=== PATIENT | female | born 1970 | race Two or more races ===

== ENCOUNTER 2019-12-20 13:31 | Emergency (ER) | payer MEDICARE, MEDICAID ==
--- NOTE | 2019-12-20 14:28 | EDM.PDOC ---
ED HPI GENERAL MEDICAL PROBLEM - General Chief Complaint: General Stated Complaint: left arm, shoulder and knee injury Time Seen by Provider: 12/20/19 13:45 Source of Information: Reports: Patient History Limitations: Reports: No Limitations - History of Present Illness INITIAL COMMENTS - FREE TEXT/NARRATIVE: This patient is an obese 49 year old female that presents to the ER. Patient arrived via EMS. Patient is sitting up in stretcher. Patient reports she was at her mothers home and was at her car door, when she slipped on ice and fell on her left side. Patient reports pain to the left shoulder, left upper arm, left hip, middle back, left knee, right knee. Patient reports she noticed right knee bruising "that wasnt there this morning". The patient states she crawled her way back into the house to call an ambulance. Patient denies hitting her head, denies currently taking Xarelto that last few days due to an upcoming surgery to her knee on Saturday. No Trauma Code called, due to not meeting criteria. Patient denies loc, syncope, n, v, vision changes, neck pain. She is alert and oriented. Does not appear to be in distress. Has made a few phone calls from cell phone while in ER within minutes of my exam and arrival. 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) Location: Reports: Back, Upper Extremity, Left, Lower Extremity, Left, Lower Extremity, Right Front/Back Body Image: 1 - pain, tenderness 2 - pain, tenderness 3 - pain, tenderness, ecchymosis 4 - pain, tenderness 5 - pain, tenderness Quality: Reports: Ache Severity: Mild Improves with: Reports: Immobilization Worsens with: Reports: Movement Associated Symptoms: Denies: Confusion, Chest Pain, Cough, cough w sputum, Diaphoresis, Fever/Chills, Headaches, Loss of Appetite, Malaise, Nausea/Vomiting , Rash, Seizure, Shortness of Breath, Syncope, Weakness Left Knee Pain Score (Numeric/FACES): 9 - Related Data Allergies Allergy/AdvReac Type Severity Reaction Status Date / Time latex Allergy Rash Verified 12/20/19 13:39 tramadol Allergy Other Verified 12/20/19 13:39 bee stings Allergy Anaphylactic Uncoded 12/20/19 13:39 Shock coconut Allergy Anaphylactic Uncoded 12/20/19 13:39 Shock wool Allergy Itching Uncoded 12/20/19 13:39 Home Meds: Home Meds ARIPiprazole [Abilify] 20 mg PO DAILY 12/20/19 [History] Acetaminophen/Butalbital/Caff [Fioricet 325-50-40 MG] 1 each PO ASDIRECTED PRN 12/20/19 [History] Cholecalciferol (Vitamin D3) [Vitamin D] 50,000 unit PO WEEKLY 12/20/19 [History ] Efavirenz/Lamivu/Tenofov Disop [Symfi 600-300-300 mg Tablet] 1 each PO DAILY [History] Emtricitabine/Tenofov Alafenam [Descovy 200-25 mg Tablet] 1 each PO DAILY [History] Furosemide [Lasix] 20 mg PO BID 12/20/19 [History] HYDROmorphone HCl [Dilaudid] 8 mg PO ASDIRECTED PRN 12/20/19 [History] LORazepam 1 mg PO TID PRN 12/20/19 [History] Levocetirizine Dihydrochloride [Xyzal] 5 mg PO DAILY PRN 12/20/19 [History] Loperamide [Imodium] 2 mg PO ASDIRECTED PRN 12/20/19 [History] Montelukast Sodium [Singulair] 10 mg PO DAILY 12/20/19 [History] Morphine Sulfate [Morphine Sulfate ER] 60 mg PO TID 12/20/19 [History] Ondansetron [Zofran Odt] 8 mg PO Q6H PRN 12/20/19 [History] Oxybutynin 5 mg PO DAILY PRN 12/20/19 [History] Oxybutynin Chloride [Oxybutynin Chloride ER] 15 mg PO BID 12/20/19 [History] Pantoprazole Sodium 40 mg PO DAILY 12/20/19 [History] Pregabalin [Lyrica] 200 mg PO TID 12/20/19 [History] Rivaroxaban [Xarelto] 20 mg PO DAILY 12/20/19 [History] Spironolact/Hydrochlorothiazid [Spironolactone-HCTZ 25-25] 1 tab PO DAILY [History] busPIRone [Buspar] 10 mg PO BID 12/20/19 [History] calcitrioL [Calcitriol] 2 tab PO DAILY 12/20/19 [History] medroxyPROGESTERone Acetate [Medroxyprogesterone Acetate] 10 mg PO DAILY [History] tiZANidine HCl [Tizanidine HCl] 4 mg PO TID 12/20/19 [History] ED ROS GENERAL - Review of Systems Review Of Systems: See Below Constitutional: Reports: No Symptoms HEENT: Reports: No Symptoms. Denies: Vertigo, Vision Change Respiratory: Reports: No Symptoms. Denies: Shortness of Breath, Pleuritic Chest Pain, Cough Cardiovascular: Reports: No Symptoms. Denies: Chest Pain, Lightheadedness, Syncope Endocrine: Reports: No Symptoms GI/Abdominal: Reports: No Symptoms. Denies: Nausea, Vomiting : Reports: No Symptoms Musculoskeletal: Reports: Shoulder Pain (left), Arm Pain (left upper), Back Pain (middle), Joint Pain (bialteral knees, left hip.), Muscle Pain (generalized ) Skin: Reports: Bruising (right knee) Neurological: Reports: No Symptoms. Denies: Confusion, Dizziness, Headache, Numbness, Seizure, Syncope, Tingling, Trouble Speaking, Weakness, Change in Speech Psychiatric: Reports: No Symptoms Hematologic/Lymphatic: Reports: No Symptoms Immunologic: Reports: No Symptoms ED EXAM, GENERAL - Physical Exam Exam: See Below Exam Limited By: Other (Exam is limited due to patient obesity. [place] identification is difficult.) General Appearance: Alert, WD/WN, No Apparent Distress Eye Exam: Bilateral Eye: EOMI, Normal Inspection, PERRL Ears: Normal External Exam, Normal Canal, Hearing Grossly Normal, Normal TMs Ear Exam: Bilateral Ear: Auricle Normal, Canal Normal, TM normal Nose: Normal Inspection, Normal Mucosa, No Blood Throat/Mouth: Normal Inspection, Normal Lips, Normal Teeth, Normal Gums, Normal Oropharynx, Normal Voice, No Airway Compromise Head: Atraumatic, Normocephalic Neck: Normal Inspection, Supple, Non-Tender, Full Range of Motion Respiratory/Chest: No Respiratory Distress, Lungs Clear, Normal Breath Sounds, No Accessory Muscle Use, Chest Non-Tender Cardiovascular: Normal Peripheral Pulses, Regular Rate, Rhythm, No Edema, No Gallop, No JVD, No Murmur, No Rub Peripheral Pulses: 2+: Radial (L), Radial (R), Posterior Tibial (L), Posterior Tibial (R) GI/Abdominal: Non-Tender, Other (obese) Back Exam: Normal Inspection, Full Range of Motion, Paraspinal Tenderness ( thoracic), Vertebral Tenderness (thoracic). No: CVA Tenderness (L), CVA Tenderness (R), Decreased Range of Motion, Muscle Spasm Extremities: Other (Pain, tenderness left shoulder, left upper arm, left hip, left knee, right knee. Eccyhmosis right knee. ) Neurological: Alert, Oriented, Normal Cognition Psychiatric: Normal Affect, Normal Mood Skin Exam: Warm, Dry, Intact, No Rash, Ecchymosis (right knee mild) Course - Vital Signs Last Recorded V/S: Last Vital Signs Temp 96.9 F 12/20/19 13:32 Pulse 66 12/20/19 13:32 Resp 16 12/20/19 13:32 BP 109/51 L 12/20/19 13:32 Pulse Ox 100 12/20/19 13:32 - Orders/Labs/Meds Orders: Active Orders 24 hr Category Date Time Status Elbow Min 3V Lt [CR] Stat Exams 12/20/19 13:54 Taken Hip Min 2V or 3V w Pelvis Lt [CR] Stat Exams 12/20/19 13:54 Taken Knee 3V Lt [CR] Stat Exams 12/20/19 13:53 Taken Knee 3V Rt [CR] Stat Exams 12/20/19 13:53 Taken Shoulder Comp Lt [CR] Stat Exams 12/20/19 13:54 Taken Thoracic Spine 2V [CR] Stat Exams 12/20/19 13:54 Taken - Radiology Interpretation Free Text/Narrative:: Xrays: left shoulder, elbow, hip, knee: no fractures. Left knee patella dislocation. Thoracic: no fracture Right knee: No fracture - Re-Assessments/Exams Free Text/Narrative Re-Assessment/Exam: 12/20/19 14:34 Patient was able to transfer to xray table without difficulty. 12/20/19 15:00 Patent in xray was able to stand without difficulty, roll on table, move her left arm without difficulty. Back in ER room, she was coloring using left arm without issue. 12/20/19 16:09 Left knee patella dislocation. Another xray was obtained of the patella prior to reduction. I then reduced the patella. It popped and slid back into place without complications. Patient now reports pain of the knee has improved and it feels like it is in place. Norberto wrap used to the knee. Patient is to obese for knee immobilizer. Departure - Departure Time of Disposition: 16:19 Disposition: Home, Self-Care 01 Condition: Fair Clinical Impression: Multiple contusions Fall Qualifiers: Encounter type: initial encounter Qualified Code(s): W19.XXXA - Unspecified fall, initial encounter Sprain of left shoulder Qualifiers: Encounter type: initial encounter Shoulder sprain type: unspecified sprain Qualified Code(s): S43.402A - Unspecified sprain of left shoulder joint, initial encounter Patellar dislocation Qualifiers: Encounter type: initial encounter Laterality: left Qualified Code(s): S83.005A - Unspecified dislocation of left patella, initial encounter - Discharge Information *PRESCRIPTION DRUG MONITORING PROGRAM REVIEWED*: Not Applicable *COPY OF PRESCRIPTION DRUG MONITORING REPORT IN PATIENT BELKIS: Not Applicable Instructions: Patellar Dislocation, Contusion, [id number] Forms: ED Department Discharge Additional Instructions: Followup with your primary care provider Followup with your orthopedic as needed Rest Ice Elevate Arm sling as needed Norberto wrap to the knee If knee cap dislocates again, present to ER to put back in. Walker as needed Sepsis Event Note - Evaluation Sepsis Screening Result: No Definite Risk - Focused Exam Vital Signs: Vital Signs Temp Pulse Resp BP Pulse Ox 12/20/19 13:32 96.9 F 66 16 109/51 L 100 Date Exam was Performed: 12/20/19 Time Exam was Performed: 16:19 - My Orders Last 24 Hours: My Active Orders 12/20/19 13:53 Knee 3V Lt [CR] Stat Knee 3V Rt [CR] Stat 12/20/19 13:54 Elbow Min 3V Lt [CR] Stat Hip Min 2V or 3V w Pelvis Lt [CR] Stat Shoulder Comp Lt [CR] Stat Thoracic Spine 2V [CR] Stat - Assessment/Plan Last 24 Hours: My Active Orders 12/20/19 13:53 Knee 3V Lt [CR] Stat Knee 3V Rt [CR] Stat 12/20/19 13:54 Elbow Min 3V Lt [CR] Stat Hip Min 2V or 3V w Pelvis Lt [CR] Stat Shoulder Comp Lt [CR] Stat Thoracic Spine 2V [CR] Stat Plan: PLEASE SEE RN NOTE FOR PFSH
== END 2019-12-20 16:45 | disposition home or self-care (01) ==
LOC: CC.ED 13:31
DX: S83.005A Unspecified dislocation of left patella, initial encounter (principal); S43.402A Unspecified sprain of left shoulder joint, initial encounter; S80.01XA Contusion of right knee, initial encounter; M79.622 Pain in left upper arm; M54.6 Pain in thoracic spine; M25.552 Pain in left hip; E66.9 Obesity, unspecified; Z68.43 Body mass index [BMI] 50.0-59.9, adult; Z91.030 Bee allergy status; Z91.040 Latex allergy status; Z88.5 Allergy status to narcotic agent; Z91.018 Allergy to other foods; Z91.09 Other allergy status, other than to drugs and biological substances; Z79.01 Long term (current) use of anticoagulants; W00.0XXA Fall on same level due to ice and snow, initial encounter; Y92.89 Other specified places as the place of occurrence of the external cause; Y93.89 Activity, other specified
CPT/HCPCS: 27560; 72070; 73030-LT; 73080-LT; 73562-LT; 73562-RT; 99283-25; 99284

== ENCOUNTER 2021-07-30 18:46 | Emergency (ER) | payer MEDICARE, MEDICAID ==
[2021-07-30 19:16] LABS: CHLORIDE,CL 101 mEq/L (98-106); SODIUM,NA 136 mEq/L (136-145)
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
== END 2021-07-30 22:05 | disposition home or self-care (01) ==
LOC: CC.ED 18:46
DX: S80.11XA Contusion of right lower leg, initial encounter (principal); S80.12XA Contusion of left lower leg, initial encounter; R51.9 Headache, unspecified; M25.552 Pain in left hip; I11.0 Hypertensive heart disease with heart failure; I50.9 Heart failure, unspecified; K21.9 Gastro-esophageal reflux disease without esophagitis; M19.90 Unspecified osteoarthritis, unspecified site; E66.9 Obesity, unspecified; Z68.45 Body mass index [BMI] 70 or greater, adult; Z86.711 Personal history of pulmonary embolism; Z79.01 Long term (current) use of anticoagulants; Z91.040 Latex allergy status; Z88.5 Allergy status to narcotic agent; Z91.030 Bee allergy status; Z91.018 Allergy to other foods; Z91.048 Other nonmedicinal substance allergy status; Z79.899 Other long term (current) drug therapy; W18.30XA Fall on same level, unspecified, initial encounter; Y92.009 Unspecified place in unspecified non-institutional (private) residence as the place of occurrence of the external cause
CPT/HCPCS: 36415; 70450; 72125; 72192; 80053; 84484; 85025; 86140; 93005; 93010; 99284; 99284-25

== ENCOUNTER 2021-08-01 14:17 | Emergency (ER) | payer MEDICARE, MEDICAID ==
[2021-08-01] MEDS ORDERED: Sodium Chloride 0.9% 1,000 ML IV SCH (15:30)
--- NOTE | 2021-08-01 16:47 | EDM.PDOC ---
ED HPI GENERAL MEDICAL PROBLEM - General Chief Complaint: General Stated Complaint: diarrhea Time Seen by Provider: 08/01/21 14:40 Source of Information: Reports: Patient History Limitations: Reports: No Limitations - History of Present Illness INITIAL COMMENTS - FREE TEXT/NARRATIVE: Jessica is a 51 year old female who presents to ER with complaints of weakness and diarrhea. Patient states she fell around 0300 this am and hit her head on the frame of her bed. States she was attempting to roll over so she could get up from the bed and fell off. EMS was called and assisted up from the floor and she returned back to bed. She admits she has had to get up frequently over the last 2 days due to diarrhea. Feels weak as a result. Does have history of many falls even prior to this. Was just seen on the weekend by this provider for a fall with head trauma. Had hip pain at that time. All scan negative. Now today she is noting bruising to her right thigh and left sandoval from this fall but admits has been able to bear weight and still ambulate with her walker. Notes incontinence of stool at times due to not getting to the bathroom in time. No abdominal pain or fever. States not absorbing her meds well as they "are running right through me". Is on anticoagulation due to history of blood clots. Onset: Gradual Duration: Day(s):, Waxing/Waning Location: Reports: Generalized Associated Symptoms: Reports: Headaches, Malaise, Weakness. Denies: Confusion, Chest Pain, Cough, Fever/Chills, Loss of Appetite, Nausea/Vomiting, Shortness of Breath Treatments ELECTRICAL TEST ENGINEER: Reports: Other Medication(s) Other Treatments ELECTRICAL TEST ENGINEER: immodium Bilateral Leg Pain Score (Numeric/FACES): 7 - Related Data Allergies Allergy/AdvReac Type Severity Reaction Status Date / Time latex Allergy Rash Verified 08/01/21 14:21 tramadol Allergy Other Verified 08/01/21 14:21 bee stings Allergy Anaphylactic Uncoded 08/01/21 14:21 Shock coconut Allergy Anaphylactic Uncoded 08/01/21 14:21 Shock wool Allergy Itching Uncoded 08/01/21 14:21 Home Meds: Home Meds ARIPiprazole [Abilify] 20 mg PO DAILY 12/20/19 [History] Acetaminophen/Butalbital/Caff [Fioricet 325-50-40 MG] 1 each PO ASDIRECTED PRN 12/20/19 [History] Cholecalciferol (Vitamin D3) [Vitamin D] 50,000 unit PO WEEKLY 12/20/19 [History] Efavirenz/Lamivu/Tenofov Disop [Symfi 600-300-300 mg Tablet] 1 each PO DAILY 12/20/19 [History] Emtricitabine/Tenofov Alafenam [Descovy 200-25 mg Tablet] 1 each PO DAILY 12/20/19 [History] Furosemide [Lasix] 20 mg PO BID 12/20/19 [History] LORazepam 1 mg PO TID PRN 12/20/19 [History] Levocetirizine Dihydrochloride [Xyzal] 5 mg PO DAILY PRN 12/20/19 [History] Loperamide [Imodium] 2 mg PO ASDIRECTED PRN 12/20/19 [History] Montelukast Sodium [Singulair] 10 mg PO DAILY 12/20/19 [History] Ondansetron [Zofran Odt] 8 mg PO Q6H PRN 12/20/19 [History] Oxybutynin 5 mg PO DAILY PRN 12/20/19 [History] Oxybutynin Chloride [Oxybutynin Chloride ER] 15 mg PO BID 12/20/19 [History] Pantoprazole Sodium 40 mg PO DAILY 12/20/19 [History] Pregabalin [Lyrica] 200 mg PO TID 12/20/19 [History] Rivaroxaban [Xarelto] 20 mg PO DAILY 12/20/19 [History] Spironolact/Hydrochlorothiazid [Spironolactone-HCTZ 25-25] 1 tab PO DAILY 12/20/19 [History] busPIRone [Buspar] 10 mg PO BID 12/20/19 [History] calcitrioL [Calcitriol] 2 tab PO DAILY 12/20/19 [History] medroxyPROGESTERone Acetate [Medroxyprogesterone Acetate] 10 mg PO DAILY 12/20/19 [History] Past Medical History HEENT History: Reports: Other (See Below) Other HEENT History: legally blind Cardiovascular History: Reports: Heart Failure, Hypertension, SOB on Exertion Respiratory History: Reports: PE, SOB Gastrointestinal History: Reports: Chronic Diarrhea, GERD Genitourinary History: Reports: Urinary Incontinence, Other (See Below) Other Genitourinary History: stage 3 kidney failure Other CLINICAL PSYCHOLOGIST LICENSED History: tubal ligation Musculoskeletal History: Reports: Back Pain, Chronic, Fracture, Osteoarthritis Neurological History: Reports: Migraines Psychiatric History: Reports: Anxiety, Bipolar, Depression, Panic Attack Endocrine/Metabolic History: Reports: Hyperthyroidism, Vitamin D Deficiency Hematologic History: Reports: Anticoagulation Therapy Other Hematologic History: on xarelto for history of PE Immunologic History: Reports: HIV - Past Surgical History Respiratory Surgical History: Reports: None GI Surgical History: Reports: Bariatric Procedure, Cholecystectomy, Other (See Below) Other GI Surgeries/Procedures: panniculectomy 2018 (19 lbs skin removed) Female Surgical History: Reports: Tubal Ligation Musculoskeletal Surgical History: Reports: Arthroscopic Knee, Knee Replacement, Other (See Below) Other Musculoskeletal Surgeries/Procedures:: left knee replacement X3; fracture below left knee, ruptured quadricep tendon repair, ruptured thigh. muscle, right knee surgery Social & Family History - Tobacco Use Tobacco Use Status *Q: Unknown Ever Used Tobacco ED ROS GENERAL - Review of Systems Review Of Systems: See Below Constitutional: Reports: Malaise, Weakness, Fatigue. Denies: Fever, Chills, Decreased Appetite HEENT: Denies: Ear Pain, Rhinitis, Sinus Problem, Throat Pain, Vertigo, Vision Change Respiratory: Denies: Shortness of Breath, Cough Cardiovascular: Denies: Chest Pain, Lightheadedness Endocrine: Reports: Fatigue GI/Abdominal: Reports: Diarrhea, Nausea. Denies: Abdominal Pain, Decreased Appetite, Vomiting : Reports: Incontinence Musculoskeletal: Reports: Leg Pain, Joint Pain Skin: Reports: Bruising Neurological: Reports: Headache, Weakness. Denies: Confusion, Dizziness Psychiatric: Reports: No Symptoms ED EXAM, GENERAL - Physical Exam Exam: See Below Exam Limited By: No Limitations General Appearance: Alert, WD/WN, No Apparent Distress Eye Exam: Bilateral Eye: EOMI, PERRL Ears: Normal External Exam, Normal TMs Nose: Normal Inspection, Normal Mucosa, No Blood Throat/Mouth: Normal Inspection, Normal Oropharynx Head: Normocephalic Neck: Normal Inspection, Supple, Non-Tender Respiratory/Chest: No Respiratory Distress, Lungs Clear, Normal Breath Sounds Cardiovascular: Regular Rate, Rhythm GI/Abdominal: Normal Bowel Sounds, Soft, Non-Tender Extremities: Normal Range of Motion Skin Exam: Warm, Dry, Ecchymosis (patient has bruising to arms, legs scattered throughout, some old and some new) Course - Vital Signs Last Recorded V/S: Last Vital Signs Temp 97 F 08/01/21 15:07 Pulse 72 08/01/21 15:07 Resp 18 08/01/21 15:07 BP 119/67 08/01/21 15:07 Pulse Ox 99 08/01/21 15:07 - Orders/Labs/Meds Orders: Active Orders 24 hr Category Date Time Status Vital Signs [RC] PRN Care 08/01/21 15:00 Active Head wo Cont [CT] Stat Exams 08/01/21 14:32 Taken Sodium Chloride 0.9% [Normal Saline] 1,000 ml Med 08/01/21 15:30 Active IV ASDIRECTED Medication Orders Sodium Chloride (Normal Saline) 1,000 mls @ 999 mls/hr IV ASDIRECTED MINDI Last Admin: 08/01/21 15:23 Dose: 999 mls/hr Documented by: SOFIE Labs: Laboratory Tests 08/01/21 08/01/21 Range/Units 14:41 14:41 WBC 4.6 (4.0-11.0) 10^3/uL RBC 4.37 (4.00-5.50) x10^6/uL Hgb 12.3 (12.0-16.0) g/dL Hct 37.4 (37.0-47.0) % MCV 85.6 (83.0-97.0) fL MCH 28.1 (27.0-32.0) pg MCHC 32.9 (32.0-36.0) g/dL RDW Coeff of Nando 16.0 H (11.0-15.0) % Plt Count 200 (150-400) 10^3/uL Immature Gran % (Auto) 0.4 (0.0-4.9) % Neut % (Auto) 63.6 (41-71) % Lymph % (Auto) 24.7 (24-44) % Placer % (Auto) 9.8 (0-10) % Eos % (Auto) 1.3 (0-6) % Baso % (Auto) 0.2 (0-1) % Neut # (Auto) 2.93 (1.80-8.00) x10^3/uL Lymph # (Auto) 1.14 (0.60-5.00) 10^3/uL Placer # (Auto) 0.45 (0.00-1.50) 10^3/uL Eos # (Auto) 0.06 (0.00-1.50) 10^3/uL Baso # (Auto) 0.01 (0.00-0.50) 10^3/uL Immature Gran # (Auto) 0.02 (0.00-0.49) 10^3/uL Sodium 133 L (136-145) mEq/L Potassium 4.0 (3.5-5.0) mEq/L Chloride 106 (98-106) mEq/L Carbon Dioxide 22 (21-32) mmol/L BUN 36 H (7-18) mg/dL Creatinine 1.7 H (0.6-1.0) mg/dL Est Cr Clr Drug Dosing 38.93 mL/min Estimated GFR (MDRD) 32 L (>=60) mL/min Glucose 99 (75-99) mg/dL Calcium 8.1 L (8.4-10.1) mg/dL Total Bilirubin 0.2 (0.0-1.0) mg/dL AST 27 (15-37) U/L ALT 28 (12-78) U/L Alkaline Phosphatase 134 H (46-116) U/L C-Reactive Protein 7.4 H (0.2-0.8) mg/dL Total Protein 6.7 (6.4-8.2) g/dL Albumin 3.0 L (3.4-5.0) g/dL Meds: Medications Generic Name Dose Route Start Last Admin Trade Name Freq PRN Reason Stop Dose Admin Sodium Chloride 1,000 mls @ 999 mls/hr 08/01/21 15:30 08/01/21 15:23 Normal Saline IV 999 mls/hr ASDIRECTED MINDI Administration - Re-Assessments/Exams Free Text/Narrative Re-Assessment/Exam: 08/01/21 labs show mild elevation of BUN and creatinine since Saturday. IV fluids due to dehydration, elevation of BUN and creatinine. Awaiting CT scan of head due to fall on anticoagulation. 08/01/21 1540- CT scan of head is negative. Will monitor and complete IV fluids. Patient resting up in wheelchair, watching TV 1715- No further diarrhea since arrival here. Reassured of labs, CT scan. If persists, may need to collect stool studies in the next 2-3 days. Departure - Departure Time of Disposition: 17:21 Disposition: Home, Self-Care 01 Condition: Good Clinical Impression: Diarrhea, Headache Fall Qualifiers: Encounter type: initial encounter Qualified Code(s): W19.XXXA - Unspecified fall, initial encounter - Discharge Information *PRESCRIPTION DRUG MONITORING PROGRAM REVIEWED*: No *COPY OF PRESCRIPTION DRUG MONITORING REPORT IN PATIENT BELKIS: No Instructions: Diarrhea, Adult, [id number] Referrals: Venessa Srivastava TORCH OPERATOR [Primary Care Provider] - Forms: ED Department Discharge Additional Instructions: 1. Push fluids 2. BRAT diet~ bananas, rice, applesauce and toast 3. Immodium as needed 4. If diarrhea continues, may need to have stool specimens collected 5. Slow cautious movements to avoid falls, use walker 6. Follow up for any persisting concerns. Sepsis Event Note (ED) - Focused Exam Vital Signs: Vital Signs Temp Pulse Resp BP Pulse Ox 08/01/21 15:07 97 F 72 18 119/67 99 08/01/21 15:00 74 122/60 08/01/21 14:52 97.5 F 72 18 117/62 99 08/01/21 14:43 97 F 71 18 118/69 99 08/01/21 14:37 98 F 71 18 120/69 99 08/01/21 14:22 98.2 F 76 18 118/68 96 - My Orders Last 24 Hours: My Active Orders 08/01/21 14:32 Head wo Cont [CT] Stat 08/01/21 15:00 Vital Signs [RC] PRN 08/01/21 15:30 Sodium Chloride 0.9% [Normal Saline] 1,000 ml IV ASDIRECTED - Assessment/Plan Last 24 Hours: My Active Orders 08/01/21 14:32 Head wo Cont [CT] Stat 08/01/21 15:00 Vital Signs [RC] PRN 08/01/21 15:30 Sodium Chloride 0.9% [Normal Saline] 1,000 ml IV ASDIRECTED
== END 2021-08-01 17:50 | disposition home or self-care (01) ==
LOC: CC.ED 14:17
DX: S80.11XA Contusion of right lower leg, initial encounter (principal); S80.12XA Contusion of left lower leg, initial encounter; S40.022A Contusion of left upper arm, initial encounter; S40.021A Contusion of right upper arm, initial encounter; R51.9 Headache, unspecified; R19.7 Diarrhea, unspecified; I11.0 Hypertensive heart disease with heart failure; I50.9 Heart failure, unspecified; K21.9 Gastro-esophageal reflux disease without esophagitis; M19.90 Unspecified osteoarthritis, unspecified site; Z86.711 Personal history of pulmonary embolism; Z79.01 Long term (current) use of anticoagulants; Z91.040 Latex allergy status; Z88.5 Allergy status to narcotic agent; Z91.030 Bee allergy status; Z91.018 Allergy to other foods; Z91.048 Other nonmedicinal substance allergy status; Z79.899 Other long term (current) drug therapy; W06.XXXA Fall from bed, initial encounter
CPT/HCPCS: 36415; 70450; 80053; 85025; 86140; 99285; J7030; 99284

== ENCOUNTER 2021-08-06 22:39 | Emergency (ER) | payer MEDICARE, MEDICAID ==
--- NOTE | 2021-08-06 23:00 | EDM.PDOC ---
ED HPI GENERAL MEDICAL PROBLEM - General Chief Complaint: Trauma Stated Complaint: FELL OUT OF BED- HEAD AND KNEE PAIN Time Seen by Provider: 08/06/21 22:35 Source of Information: Reports: Patient, EMS History Limitations: Reports: No Limitations - History of Present Illness INITIAL COMMENTS - FREE TEXT/NARRATIVE: Jessica is a 51 year old female who presents per EMS with complaints of fall and hitting head. Fell out of bed and hit her head on the dresser. No loss of consciousness. States did not feel herself she needed to come to the ER but due to hitting head and complaining of pain, the lady she lives with felt she needed to be evaluated. Does have difficulty getting up from the floor after falling. EMS reports was on the floor beside bed. This is the 4th call this week where they either brought her here or needed to assist her up from the floor. She states when she is up during the day, she does use her walker. Didn't realize tonight she was laying so close to the edge of her bed and when turned over, fell out. Mostly complaining of right knee pain. Feels she landed more with pressure on her knee. She has multiple bruises which appear relatively unc hanged since her eval on Saturday and no new bruising is noted. GCS 15. Onset: Today, Sudden Duration: Minutes: Location: Reports: Head, Lower Extremity, Right Quality: Reports: Ache Severity: Moderate Improves with: Reports: Rest Worsens with: Reports: Movement Associated Symptoms: Denies: Confusion, Chest Pain, Cough, Fever/Chills, Headaches, Loss of Appetite, Malaise, Nausea/Vomiting, Shortness of Breath, Syncope, Weakness Treatments WELDER PRODUCTION LINE GAS: Reports: See EMS Report Back of head and R knee Pain Score (Numeric/FACES): 8 - Related Data Allergies Allergy/AdvReac Type Severity Reaction Status Date / Time latex Allergy Rash Verified 08/06/21 23:09 tramadol Allergy Other Verified 08/06/21 23:09 bee stings Allergy Anaphylactic Uncoded 08/06/21 23:09 Shock coconut Allergy Anaphylactic Uncoded 08/06/21 23:09 Shock wool Allergy Itching Uncoded 08/06/21 23:09 Home Meds: Home Meds ARIPiprazole [Abilify] 20 mg PO DAILY 12/20/19 [History] Acetaminophen/Butalbital/Caff [Fioricet 325-50-40 MG] 1 each PO ASDIRECTED PRN 12/20/19 [History] Cholecalciferol (Vitamin D3) [Vitamin D] 50,000 unit PO WEEKLY 12/20/19 [History] Efavirenz/Lamivu/Tenofov Disop [Symfi 600-300-300 mg Tablet] 1 each PO DAILY 12/20/19 [History] Emtricitabine/Tenofov Alafenam [Descovy 200-25 mg Tablet] 1 each PO DAILY 12/20/19 [History] Furosemide [Lasix] 20 mg PO BID 12/20/19 [History] LORazepam 1 mg PO TID PRN 12/20/19 [History] Levocetirizine Dihydrochloride [Xyzal] 5 mg PO DAILY PRN 12/20/19 [History] Loperamide [Imodium] 2 mg PO ASDIRECTED PRN 12/20/19 [History] Montelukast Sodium [Singulair] 10 mg PO DAILY 12/20/19 [History] Ondansetron [Zofran Odt] 8 mg PO Q6H PRN 12/20/19 [History] Oxybutynin 5 mg PO DAILY PRN 12/20/19 [History] Oxybutynin Chloride [Oxybutynin Chloride ER] 15 mg PO BID 12/20/19 [History] Pantoprazole Sodium 40 mg PO DAILY 12/20/19 [History] Pregabalin [Lyrica] 200 mg PO TID 12/20/19 [History] Rivaroxaban [Xarelto] 20 mg PO DAILY 12/20/19 [History] Spironolact/Hydrochlorothiazid [Spironolactone-HCTZ 25-25] 1 tab PO DAILY 12/20/19 [History] busPIRone [Buspar] 10 mg PO BID 12/20/19 [History] calcitrioL [Calcitriol] 2 tab PO DAILY 12/20/19 [History] medroxyPROGESTERone Acetate [Medroxyprogesterone Acetate] 10 mg PO DAILY 12/20/19 [History] Past Medical History HEENT History: Reports: Other (See Below) Other HEENT History: legally blind Cardiovascular History: Reports: Heart Failure, Hypertension, SOB on Exertion Respiratory History: Reports: PE, SOB Gastrointestinal History: Reports: Chronic Diarrhea, GERD Genitourinary History: Reports: Urinary Incontinence, Other (See Below) Other Genitourinary History: stage 3 kidney failure Other RECONCILIATION ANALYST History: tubal ligation Musculoskeletal History: Reports: Back Pain, Chronic, Fracture, Osteoarthritis Neurological History: Reports: Migraines Psychiatric History: Reports: Anxiety, Bipolar, Depression, Panic Attack Endocrine/Metabolic History: Reports: Hyperthyroidism, Vitamin D Deficiency Hematologic History: Reports: Anticoagulation Therapy Other Hematologic History: on xarelto for history of PE Immunologic History: Reports: HIV - Infectious Disease History Infectious Disease History: Reports: HIV-Human Immunodeficiency Virus - Past Surgical History Respiratory Surgical History: Reports: None GI Surgical History: Reports: Bariatric Procedure, Cholecystectomy, Other (See Below) Other GI Surgeries/Procedures: panniculectomy 2018 (19 lbs skin removed) Female Surgical History: Reports: Tubal Ligation Musculoskeletal Surgical History: Reports: Arthroscopic Knee, Knee Replacement, Other (See Below) Other Musculoskeletal Surgeries/Procedures:: left knee replacement X3; fracture below left knee, ruptured quadricep tendon repair, ruptured thigh. muscle, right knee surgery Social & Family History - Family History Family Medical History: No Pertinent Family History - Tobacco Use Tobacco Use Status *Q: Unknown Ever Used Tobacco Review of Systems - Review of Systems Review Of Systems: See Below Constitutional: Denies: Chills, Diaphoresis, Fever, Weakness Eyes: Denies: Blindness, Blurred Vision, Decreased Acuity, Vision Change Ears: Denies: Dizziness, Pain, Bloody Discharge Nose: Denies: Congestion, Epistaxis Mouth/Throat: Denies: Painful Swallowing Respiratory: Denies: Shortness of Breath, Cough Cardiovascular: Denies: Chest Pain GI/Abdominal: Denies: Abdominal Pain, Nausea, Vomiting Genitourinary: Reports: No Symptoms Musculoskeletal: Reports: Joint Pain Skin: Reports: Bruising Neurological: Denies: Dizziness, Headache, Syncope, Weakness ED EXAM, GENERAL - Physical Exam Exam: See Below Free Text/Narrative:: Trauma code called due to hitting head and being on anticoagulants Primary survey: Alert, oriented x3. Converses easily. Patent airway Lung sounds clear Regular S1S2 Abdomen soft Pelvis nontender, no pelvic xray due to no pain, no trauma to area. Able to move about from CT scanner to cart per self. Back exposed, no trauma noted GCS 15 Exam Limited By: No Limitations General Appearance: Alert, WD/WN, No Apparent Distress Ears: Normal External Exam, Normal TMs Nose: Normal Inspection, Normal Mucosa, No Blood Throat/Mouth: Normal Inspection, Normal Oropharynx Head: Normocephalic Neck: Normal Inspection, Supple, Non-Tender Respiratory/Chest: No Respiratory Distress, Lungs Clear, Normal Breath Sounds Cardiovascular: Regular Rate, Rhythm GI/Abdominal: Normal Bowel Sounds, Soft, Non-Tender Extremities: Normal Inspection, Normal Range of Motion, Other (tender to right knee with palpation) Neurological: Alert, Oriented Skin Exam: Warm, Dry, Ecchymosis (multiple bruises noted throughout) Course - Vital Signs Last Recorded V/S: Last Vital Signs Temp 97.2 F 08/06/21 22:40 Pulse 71 08/06/21 22:50 Resp 21 H 08/06/21 22:50 BP 142/90 H 08/06/21 22:50 Pulse Ox 99 08/06/21 22:50 - Orders/Labs/Meds Orders: Active Orders 24 hr Category Date Time Status Head wo Cont [CT] Stat Exams 08/06/21 22:36 Taken Knee 3V Rt [CR] Stat Exams 08/06/21 22:57 Taken Meds: Medications Discontinued Medications Generic Name Dose Route Start Last Admin Trade Name Zhangq PRN Reason Stop Dose Admin Ketorolac Tromethamine 60 mg 08/06/21 23:32 08/06/21 23:37 Ketorolac 60 Mg/2 Ml Sdv IM 08/06/21 23:33 60 mg ONETIME ONE Administration - Re-Assessments/Exams Free Text/Narrative Re-Assessment/Exam: 08/06/21 23:31 Xrays of knee negative. CT scan negative. No labs done as mechanism of injury was fall out of bed without any other symptoms. Able to transfer to wheelchair per self. Conversing easily. GCS remains 15. 08/06/21 23:41 Long conversation held with patient and friend in regards to patient safety/falls and accommodations for her at home as has had several falls and visits for such. Patient admits she needs to move the stuff off her bed so she can settle more in to the bed as is a gomes size bed. Friend states room is unable to be rearranged to get dresser any farther away from the bed. Does have a grab bar but has not been using that. Does use walker when up. Discussed safety adaptations with possibly a hospital bed for her and home health for balance/strengthening. Departure - Departure Time of Disposition: 23:44 Disposition: Home, Self-Care 01 Condition: Good Clinical Impression: Trauma, Headache, Knee pain, right - Discharge Information *PRESCRIPTION DRUG MONITORING PROGRAM REVIEWED*: No *COPY OF PRESCRIPTION DRUG MONITORING REPORT IN PATIENT BELKIS: No Instructions: Chronic Knee Pain, Adult, [id number], General Headache Without Cause, [id number] Referrals: PCP,None [Primary Care Provider] - Forms: ED Department Discharge Additional Instructions: 1. Rest 2. Ensure bed is cleared and use grab bar as needed for better placement to avoid falling out of bed 3. Tylenol for headache 4. Contact [facility] for adaptation can be made to home 5. We will contact home health for strengthening/balance 6. Call with any questions or concerns. - My Orders Last 24 Hours: My Active Orders 08/06/21 22:36 Head wo Cont [CT] Stat 08/06/21 22:57 Knee 3V Rt [CR] Stat - Assessment/Plan Last 24 Hours: My Active Orders 08/06/21 22:36 Head wo Cont [CT] Stat 08/06/21 22:57 Knee 3V Rt [CR] Stat
[2021-08-06] MEDS ORDERED: Ketorolac 60 MG/2 ML SDV IM ONE (23:32)
== END 2021-08-06 23:55 | disposition home or self-care (01) ==
LOC: CC.ED 22:39
DX: R51.9 Headache, unspecified (principal); M25.561 Pain in right knee; I13.0 Hypertensive heart and chronic kidney disease with heart failure and stage 1 through stage 4 chronic kidney disease, or unspecified chronic kidney disease; N18.30 Chronic kidney disease, stage 3 unspecified; I50.9 Heart failure, unspecified; K21.9 Gastro-esophageal reflux disease without esophagitis; E03.9 Hypothyroidism, unspecified; Z91.040 Latex allergy status; Z91.030 Bee allergy status; Z88.5 Allergy status to narcotic agent; Z91.018 Allergy to other foods; Z91.048 Other nonmedicinal substance allergy status; Z79.899 Other long term (current) drug therapy; W06.XXXA Fall from bed, initial encounter
CPT/HCPCS: 70450; 73562-RT; 96372; 99283; 99284-25; J1885

== ENCOUNTER 2021-08-17 20:50 | Emergency (ER) | payer MEDICARE, MEDICAID ==
--- NOTE | 2021-08-17 21:45 | EDM.PDOC ---
ED HPI GENERAL MEDICAL PROBLEM - General Chief Complaint: General Stated Complaint: trauma-fall L) arm pain Time Seen by Provider: 08/17/21 20:55 Source of Information: Reports: Patient History Limitations: Reports: No Limitations - History of Present Illness INITIAL COMMENTS - FREE TEXT/NARRATIVE: States was cleaning something and she tripped over a bag of potatoes and fell to the floor. She was unable to get up and called the ambulance. She reports that she fell yesterday and hit the back of her head but was able to get up on her own and did not come in. She is on blood thinners due to multiple blood clots in the past. She denies any headache. Does complain of pain to the left humerus, left forearm and fingers. She denies any LOC. She does not think she hit her head tonight. GCS on admission was 15. She is alert and oriented. Ambulance reports that she has multiple falls and they get dispatched to help pick her up frequently. She does have multiple bruises to arms. Onset: Sudden Location: Reports: Head, Upper Extremity, Left Left Arm Pain Score (Numeric/FACES): 10 - Related Data Allergies Allergy/AdvReac Type Severity Reaction Status Date / Time latex Allergy Rash Verified 08/17/21 21:35 tramadol Allergy Other Verified 08/17/21 21:35 bee stings Allergy Anaphylactic Uncoded 08/17/21 21:35 Shock coconut Allergy Anaphylactic Uncoded 08/17/21 21:35 Shock wool Allergy Itching Uncoded 08/17/21 21:35 Home Meds: Home Meds Cholecalciferol (Vitamin D3) [Vitamin D] 50,000 unit PO WEEKLY 12/20/19 [History] Efavirenz/Lamivu/Tenofov Disop [Symfi 600-300-300 mg Tablet] 1 each PO DAILY 12/20/19 [History] Emtricitabine/Tenofov Alafenam [Descovy 200-25 mg Tablet] 1 each PO DAILY 12/20/19 [History] Levocetirizine Dihydrochloride [Xyzal] 5 mg PO DAILY PRN 12/20/19 [History] Loperamide [Imodium] 2 mg PO ASDIRECTED PRN 12/20/19 [History] Montelukast Sodium [Singulair] 10 mg PO DAILY 12/20/19 [History] Ondansetron [Zofran Odt] 8 mg PO Q6H PRN 12/20/19 [History] Oxybutynin 5 mg PO DAILY PRN 12/20/19 [History] Oxybutynin Chloride [Oxybutynin Chloride ER] 15 mg PO BID 12/20/19 [History] Pantoprazole Sodium 40 mg PO DAILY 12/20/19 [History] Pregabalin [Lyrica] 200 mg PO TID 12/20/19 [History] Rivaroxaban [Xarelto] 20 mg PO DAILY 12/20/19 [History] Spironolact/Hydrochlorothiazid [Spironolactone-HCTZ 25-25] 1 tab PO DAILY 12/20/19 [History] busPIRone [Buspar] 10 mg PO BID 12/20/19 [History] calcitrioL [Calcitriol] 2 tab PO DAILY 12/20/19 [History] medroxyPROGESTERone Acetate [Medroxyprogesterone Acetate] 10 mg PO DAILY 12/20/19 [History] Bumetanide [Bumex] 1 mg PO BID 08/17/21 [History] DULoxetine [Cymbalta] 90 mg PO QAM 08/17/21 [History] Levothyroxine 1 tab PO DAILY 08/17/21 [History] Lurasidone HCl [Latuda] 40 mg PO DAILY 08/17/21 [History] Past Medical History HEENT History: Reports: Other (See Below) Other HEENT History: legally blind Cardiovascular History: Reports: Heart Failure, Hypertension, SOB on Exertion Respiratory History: Reports: PE, SOB Gastrointestinal History: Reports: Chronic Diarrhea, GERD Genitourinary History: Reports: Urinary Incontinence, Other (See Below) Other Genitourinary History: stage 3 kidney failure 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 Musculoskeletal History: Reports: Back Pain, Chronic, Fracture, Osteoarthritis Neurological History: Reports: Migraines Psychiatric History: Reports: Anxiety, Bipolar, Depression, Panic Attack Endocrine/Metabolic History: Reports: Hyperthyroidism, Vitamin D Deficiency Hematologic History: Reports: Anticoagulation Therapy Other Hematologic History: on xarelto for history of PE Immunologic History: Reports: HIV - Infectious Disease History Infectious Disease History: Reports: HIV-Human Immunodeficiency Virus - Past Surgical History Respiratory Surgical History: Reports: None GI Surgical History: Reports: Bariatric Procedure, Cholecystectomy, Other (See Below) Other GI Surgeries/Procedures: panniculectomy 2018 (19 lbs skin removed) Female Surgical History: Reports: Tubal Ligation Musculoskeletal Surgical History: Reports: Arthroscopic Knee, Knee Replacement, Other (See Below) Other Musculoskeletal Surgeries/Procedures:: left knee replacement X3; fracture below left knee, ruptured quadricep tendon repair, ruptured thigh. muscle, right knee surgery Social & Family History - Family History Family Medical History: No Pertinent Family History - Tobacco Use Tobacco Use Status *Q: Former Tobacco User Years of Tobacco use: 5 Packs/Tins Daily: 1 Used Tobacco, but Quit: Yes Month/Year Tobacco Last Used: 1994 - Caffeine Use Caffeine Use: Reports: None - Recreational Drug Use Recreational Drug Use: Yes Drug Use in Last 12 Months: Yes Recreational Drug Type: Reports: Marijuana/Hashish ED ROS GENERAL - Review of Systems Review Of Systems: See Below Constitutional: Denies: Fever, Chills HEENT: Reports: Other (see HPI) Musculoskeletal: Reports: Arm Pain. Denies: Neck Pain, Shoulder Pain Skin: Reports: Bruising (to left arm.) ED EXAM, GENERAL - Physical Exam Exam: See Below Free Text/Narrative:: Pt brought in by [facility] airway is open breathing is normal circulation has no obvious bleeding. She has bruising to the left arm both upper arm and forearm that she states was not there prior to the fall. deformities- none exposed. No other injuries noted. GCS = 15. Exam Limited By: No Limitations General Appearance: Alert, WD/WN, Moderate Distress Ears: Normal External Exam, Normal TMs Head: Atraumatic, Normocephalic Neck: Normal Inspection, Supple, Non-Tender Respiratory/Chest: No Respiratory Distress, Lungs Clear, Normal Breath Sounds, Chest Non-Tender Cardiovascular: Regular Rate, Rhythm GI/Abdominal: Normal Bowel Sounds, Soft Extremities: Normal Capillary Refill Neurological: Alert, Oriented, Other (GCS = 15 on exam.) Skin Exam: Warm, Dry, Ecchymosis (to forearm and humerus areas. ) Course - Vital Signs Last Recorded V/S: Last Vital Signs Temp 96.3 F L 08/17/21 23:19 Pulse 75 08/17/21 23:34 Resp 16 08/17/21 23:34 BP 157/84 H 08/17/21 23:34 Pulse Ox 96 08/17/21 23:34 - Orders/Labs/Meds Orders: Active Orders 24 hr Category Date Time Status Forearm 2V Lt [CR] Stat Exams 08/17/21 21:23 Taken Head wo Cont [CT] Routine Exams 08/17/21 Taken Humerus Lt [CR] Stat Exams 08/17/21 21:23 Taken Shoulder Comp Lt [CR] Stat Exams 08/17/21 21:23 Taken - Re-Assessments/Exams Free Text/Narrative Re-Assessment/Exam: 08/17/21 -[address] reports and plain film xrays with pt and no fracture or dislocation noted. Pt will be discharged. Departure - Departure Time of Disposition: 23:34 Disposition: Home, Self-Care 01 Condition: Good Clinical Impression: Multiple contusions Fall Qualifiers: Encounter type: initial encounter Qualified Code(s): W19.XXXA - Unspecified fall, initial encounter - Discharge Information *PRESCRIPTION DRUG MONITORING PROGRAM REVIEWED*: Not Applicable *COPY OF PRESCRIPTION DRUG MONITORING REPORT IN PATIENT BELKIS: Not Applicable Referrals: Dylan Alvarado MD [Primary Care Provider] - Forms: ED Department Discharge Additional Instructions: ICE to areas that are bruised use as tolerated. recheck in clinic for any new concerns. Sepsis Event Note (ED) - Evaluation Sepsis Screening Result: No Definite Risk - Focused Exam Vital Signs: Vital Signs Temp Pulse Resp BP Pulse Ox 08/17/21 23:34 75 16 157/84 H 96 08/17/21 23:19 96.3 F L 78 16 146/97 H 98 08/17/21 23:02 96.3 F L 80 16 138/92 H 97 08/17/21 23:00 81 16 134/78 100 08/17/21 22:15 69 16 122/77 100 08/17/21 22:00 97 F 70 16 111/66 99 08/17/21 21:45 97.1 F 68 16 118/72 100 08/17/21 21:30 97.1 F 79 18 138/108 H 99 08/17/21 21:26 97.1 F 74 18 129/77 98 08/17/21 21:15 97.1 F 74 18 129/77 98 - Problem List & Annotations (1) Multiple contusions SNOMED Code(s): 934928232 Code(s): T07.XXXA - UNSPECIFIED MULTIPLE INJURIES, INITIAL ENCOUNTER Status: Acute Priority: High Current Visit: Yes (2) Fall SNOMED Code(s): 9133040, 960020262 Code(s): W19.XXXA - UNSPECIFIED FALL, INITIAL ENCOUNTER Status: Acute Priority: High Current Visit: Yes Qualifiers: Encounter type: initial encounter Qualified Code(s): W19.XXXA - Unspecified fall, initial encounter - Problem List Review Problem List Initiated/Reviewed/Updated: Yes - My Orders Last 24 Hours: My Active Orders 08/17/21 Head wo Cont [CT] Routine 08/17/21 21:23 Forearm 2V Lt [CR] Stat Humerus Lt [CR] Stat Shoulder Comp Lt [CR] Stat - Assessment/Plan Last 24 Hours: My Active Orders 08/17/21 Head wo Cont [CT] Routine 08/17/21 21:23 Forearm 2V Lt [CR] Stat Humerus Lt [CR] Stat Shoulder Comp Lt [CR] Stat
== END 2021-08-17 23:46 | disposition home or self-care (01) ==
LOC: CC.ED 20:50
DX: S50.12XA Contusion of left forearm, initial encounter (principal); S50.11XA Contusion of right forearm, initial encounter; S40.012A Contusion of left shoulder, initial encounter; S40.011A Contusion of right shoulder, initial encounter; S09.90XA Unspecified injury of head, initial encounter; I13.0 Hypertensive heart and chronic kidney disease with heart failure and stage 1 through stage 4 chronic kidney disease, or unspecified chronic kidney disease; N18.30 Chronic kidney disease, stage 3 unspecified; I50.9 Heart failure, unspecified; Z91.040 Latex allergy status; Z88.5 Allergy status to narcotic agent; Z91.030 Bee allergy status; Z91.018 Allergy to other foods; Z91.048 Other nonmedicinal substance allergy status; Z87.891 Personal history of nicotine dependence; W18.09XA Striking against other object with subsequent fall, initial encounter
CPT/HCPCS: 70450; 73030-LT; 73060-LT; 73090-LT; 99283; 99284-25

== ENCOUNTER 2021-08-20 19:00 | Emergency (ER) | payer MEDICARE, MEDICAID ==
[2021-08-20] MEDS ORDERED: Ketorolac 60 MG/2 ML SDV IM ONE (19:41)
[2021-08-20] MEDS ORDERED: Orphenadrine 60 MG/2 ML Inj IM ONE (19:41)
--- NOTE | 2021-08-20 19:43 | EDM.PDOC ---
ED HPI GENERAL MEDICAL PROBLEM - General Chief Complaint: General Stated Complaint: L) arm pain Time Seen by Provider: 08/20/21 19:20 Source of Information: Reports: Patient History Limitations: Reports: No Limitations - History of Present Illness INITIAL COMMENTS - FREE TEXT/NARRATIVE: Jessica is a 51 year old female who presents to ER for left arm pain. States fell 3 days ago and was seen in the ER that day. Had xrays of her forearm, humerus and shoulder that day, all negative. Due to her Xarelto, was told she had a hematoma to her left arm. Was advised to ice, elevate. Was advised to wrap her arm but she states she is unable to do that. Has not been using her arm much due to discomfort with in the area of the bruises on her arm. Took tylenol, ibuprofen and extra lyrica today to help with the discomfort. States "bessy came home and found me crying and felt I needed to have it checked again". Is able to move her arm, just admits it is sore when doing so so hasn't been using it. Does have a card for medical marijuana but is out and unable to afford to get any more until the . States her friend did buy her some to "get her buy and I tried to stretch that out for longer but ran out yesterday". Onset: Gradual Duration: Day(s):, Constant Location: Reports: Upper Extremity, Left Quality: Reports: Burning Severity: Severe Improves with: Reports: Rest Worsens with: Reports: Movement Context: Reports: Trauma Associated Symptoms: Denies: Confusion, Chest Pain, Cough, Fever/Chills, Loss of Appetite, Nausea/Vomiting, Shortness of Breath Treatments NEUROPHYSIOLOGIST: Reports: Acetaminophen, Cold Therapy, NSAIDS, Other Medication(s) Other Treatments NEUROPHYSIOLOGIST: Lyrica Left Arm Pain Score (Numeric/FACES): 10 - Related Data Allergies Allergy/AdvReac Type Severity Reaction Status Date / Time latex Allergy Rash Verified 08/20/21 19:19 tramadol Allergy Other Verified 08/20/21 19:19 bee stings Allergy Anaphylactic Uncoded 08/20/21 19:19 Shock coconut Allergy Anaphylactic Uncoded 08/20/21 19:19 Shock wool Allergy Itching Uncoded 08/20/21 19:19 Home Meds: Home Meds Cholecalciferol (Vitamin D3) [Vitamin D] 50,000 unit PO WEEKLY 12/20/19 [History] Efavirenz/Lamivu/Tenofov Disop [Symfi 600-300-300 mg Tablet] 1 each PO DAILY 12/20/19 [History] Emtricitabine/Tenofov Alafenam [Descovy 200-25 mg Tablet] 1 each PO DAILY 12/20/19 [History] Levocetirizine Dihydrochloride [Xyzal] 5 mg PO DAILY PRN 12/20/19 [History] Loperamide [Imodium] 2 mg PO ASDIRECTED PRN 12/20/19 [History] Montelukast Sodium [Singulair] 10 mg PO DAILY 12/20/19 [History] Ondansetron [Zofran Odt] 8 mg PO Q6H PRN 12/20/19 [History] Oxybutynin 5 mg PO DAILY PRN 12/20/19 [History] Oxybutynin Chloride [Oxybutynin Chloride ER] 15 mg PO BID 12/20/19 [History] Pantoprazole Sodium 40 mg PO DAILY 12/20/19 [History] Pregabalin [Lyrica] 200 mg PO TID 12/20/19 [History] Rivaroxaban [Xarelto] 20 mg PO DAILY 12/20/19 [History] Spironolact/Hydrochlorothiazid [Spironolactone-HCTZ 25-25] 1 tab PO DAILY 12/20 [History] busPIRone [Buspar] 10 mg PO BID 12/20/19 [History] calcitrioL [Calcitriol] 2 tab PO DAILY 12/20/19 [History] medroxyPROGESTERone Acetate [Medroxyprogesterone Acetate] 10 mg PO DAILY 12/02 08/21 [History] Bumetanide [Bumex] 1 mg PO BID 08/17/21 [History] DULoxetine [Cymbalta] 90 mg PO QAM 08/17/21 [History] Levothyroxine 1 tab PO DAILY 08/17/21 [History] Lurasidone HCl [Latuda] 40 mg PO DAILY 08/17/21 [History] Past Medical History HEENT History: Reports: Other (See Below) Other HEENT History: legally blind Cardiovascular History: Reports: Heart Failure, Hypertension, SOB on Exertion Respiratory History: Reports: PE, SOB Gastrointestinal History: Reports: Chronic Diarrhea, GERD Genitourinary History: Reports: Urinary Incontinence, Other (See Below) Other Genitourinary History: stage 3 kidney failure 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 Musculoskeletal History: Reports: Back Pain, Chronic, Fracture, Osteoarthritis Neurological History: Reports: Migraines Psychiatric History: Reports: Anxiety, Bipolar, Depression, Panic Attack Endocrine/Metabolic History: Reports: Hyperthyroidism, Vitamin D Deficiency Hematologic History: Reports: Anticoagulation Therapy Other Hematologic History: on xarelto for history of PE Immunologic History: Reports: HIV - Infectious Disease History Infectious Disease History: Reports: HIV-Human Immunodeficiency Virus - Past Surgical History Respiratory Surgical History: Reports: None GI Surgical History: Reports: Bariatric Procedure, Cholecystectomy, Other (See Below) Other GI Surgeries/Procedures: panniculectomy 2018 (19 lbs skin removed) Female Surgical History: Reports: Tubal Ligation Musculoskeletal Surgical History: Reports: Arthroscopic Knee, Knee Replacement, Other (See Below) Other Musculoskeletal Surgeries/Procedures:: left knee replacement X3; fracture below left knee, ruptured quadricep tendon repair, ruptured thigh. muscle, right knee surgery Social & Family History - Family History Family Medical History: No Pertinent Family History - Tobacco Use Tobacco Use Status *Q: Unknown Ever Used Tobacco - Caffeine Use Caffeine Use: Reports: None - Recreational Drug Use Recreational Drug Use: Yes Recreational Drug Type: Reports: Marijuana/Hashish ED ROS GENERAL - Review of Systems Review Of Systems: See Below Constitutional: Reports: Weakness. Denies: Fever, Chills, Malaise, Fatigue HEENT: Denies: Ear Pain, Rhinitis, Sinus Problem, Throat Pain Respiratory: Denies: Shortness of Breath, Cough Cardiovascular: Denies: Chest Pain, Edema, Lightheadedness Endocrine: Denies: Fatigue GI/Abdominal: Denies: Abdominal Pain, Nausea, Vomiting Musculoskeletal: Reports: Arm Pain Skin: Reports: Bruising Neurological: Reports: Weakness ED EXAM, GENERAL - Physical Exam Exam: See Below Exam Limited By: No Limitations General Appearance: Alert, WD/WN, Mild Distress Head: Normocephalic Neck: Normal Inspection, Supple, Non-Tender Respiratory/Chest: No Respiratory Distress, Lungs Clear, Normal Breath Sounds Cardiovascular: Regular Rate, Rhythm Extremities: Limited Range of Motion (is able to abduct and adduct her arm but complains of discomfort with doing so. Xrays reviewed from , all negative except contusions noted), Other (patient has hematoma to left upper arm. Arm circumference measured, left arm only 1 cm larger than right. Has good pulses radially. Palmar grasp equal when encouraged to move arm) Neurological: Alert, Oriented Skin Exam: Ecchymosis (has a large bruise to her left wrist and forearm, cries out when touching. did wrap arm with dorian bandage and put heat on and did not grimace or cry when talking with the nurse while I did this.) Course - Vital Signs Last Recorded V/S: Last Vital Signs Temp 98.8 F 08/20/21 19:24 Pulse 86 08/20/21 19:24 Resp 18 08/20/21 19:24 BP 111/66 08/20/21 19:24 Pulse Ox 98 08/20/21 19:24 - Orders/Labs/Meds Meds: Medications Discontinued Medications Generic Name Dose Route Start Last Admin Trade Name Zhangq PRN Reason Stop Dose Admin Ketorolac Tromethamine 60 mg 08/20/21 19:41 Ketorolac 60 Mg/2 Ml Sdv IM 08/20/21 19:42 ONETIME ONE Orphenadrine Citrate 60 mg 08/20/21 19:41 Orphenadrine 60 Mg/2 Ml Inj IM 08/20/21 19:42 ONETIME ONE - Re-Assessments/Exams Free Text/Narrative Re-Assessment/Exam: 08/20/21 20:01 Will switch patient to Tizanidine for muscle spasms. Injections given. Advised to hold off filling her flexeril and see how the Tizanidine does. Departure - Departure Time of Disposition: 20:03 Disposition: Home, Self-Care 01 Condition: Good Clinical Impression: Multiple contusions - Discharge Information *PRESCRIPTION DRUG MONITORING PROGRAM REVIEWED*: No *COPY OF PRESCRIPTION DRUG MONITORING REPORT IN PATIENT BELKIS: No Instructions: Contusion, Qtes-ty-Depi Referrals: Venessa Srivastava NP [Primary Care Provider] - Forms: ED Department Discharge Additional Instructions: 1. elevate arm as much as able 2. Compression wrap to arm 3. heat to affected areas 4. Tizanidine 4 mg every 8 hours as needed for muscle spasms. Hold flexeril 5. Follow up in clinic for any concerns. Sepsis Event Note (ED) - Focused Exam Vital Signs: Vital Signs Temp Pulse Resp BP Pulse Ox 08/20/21 19:24 98.8 F 86 18 111/66 98
== END 2021-08-20 20:12 | disposition home or self-care (01) ==
LOC: CC.ED 19:00
DX: S40.022A Contusion of left upper arm, initial encounter (principal); S50.12XA Contusion of left forearm, initial encounter; S60.212A Contusion of left wrist, initial encounter; I13.0 Hypertensive heart and chronic kidney disease with heart failure and stage 1 through stage 4 chronic kidney disease, or unspecified chronic kidney disease; N18.30 Chronic kidney disease, stage 3 unspecified; I50.9 Heart failure, unspecified; K21.9 Gastro-esophageal reflux disease without esophagitis; E05.90 Thyrotoxicosis, unspecified without thyrotoxic crisis or storm; Z91.040 Latex allergy status; Z91.030 Bee allergy status; Z91.018 Allergy to other foods; Z79.899 Other long term (current) drug therapy; Z79.01 Long term (current) use of anticoagulants; X58.XXXA Exposure to other specified factors, initial encounter
CPT/HCPCS: 96372; 99283; J1885; J2360

== ENCOUNTER 2021-09-03 18:14 | Emergency (ER) | payer MEDICARE, MEDICAID ==
[2021-09-03] MEDS ORDERED: Naloxone 2 MG/2 ML Syringe ONE ×2 (18:20→21:26)
[2021-09-03] MEDS ORDERED: Naloxone 2 MG/2 ML Syringe IVPUSH ONE ×3 (18:42→22:09)
[2021-09-03] MEDS ORDERED: Sodium Chloride 0.9% 1,000 ML ONE (19:05)
[2021-09-03] MEDS ORDERED: Albuterol/Ipratropium 3.0-0.5 MG/3 ML Neb Soln NEB ONE (19:08)
[2021-09-03] MEDS ORDERED: Furosemide 40 MG/4 ML VIAL IVPUSH ONE ×2 (19:32→19:48)
[2021-09-03 20:07] LABS: AMPHETAMINES,URINE NEGATIVE (NEGATIVE); BARBITURATES,URINE NEGATIVE (NEGATIVE); BENZODIAZEPINE,URINE POSITIVE (NEGATIVE); MDMA (ECSTASY), URINE NEGATIVE (NEGATIVE); METHADONE,URINE NEGATIVE (NEGATIVE); METHAMPHETAMINES,URINE NEGATIVE (NEGATIVE); OPIATES,URINE POSITIVE (NEGATIVE); OXYCODONE,URINE NEGATIVE (NEGATIVE); PHENCYCLIDINE,URINE NEGATIVE (NEGATIVE); TCA,URINE POSITIVE (NEGATIVE)
[2021-09-03] MEDS ORDERED: cefTRIAXone 2 GM Vial IVPUSH ONE (21:17)
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
== END 2021-09-03 23:22 ==
LOC: CC.ED 18:14
DX: T40.601A Poisoning by unspecified narcotics, accidental (unintentional), initial encounter (principal); I11.0 Hypertensive heart disease with heart failure; I50.9 Heart failure, unspecified; R06.03 Acute respiratory distress; N17.9 Acute kidney failure, unspecified; R74.8 Abnormal levels of other serum enzymes; R79.89 Other specified abnormal findings of blood chemistry; B20 Human immunodeficiency virus [HIV] disease; K21.9 Gastro-esophageal reflux disease without esophagitis; E05.90 Thyrotoxicosis, unspecified without thyrotoxic crisis or storm; Z86.711 Personal history of pulmonary embolism; Z79.01 Long term (current) use of anticoagulants; Z91.040 Latex allergy status; Z88.5 Allergy status to narcotic agent; Z91.030 Bee allergy status; Z91.018 Allergy to other foods; Z91.048 Other nonmedicinal substance allergy status; Z79.899 Other long term (current) drug therapy; Z20.822 Contact with and (suspected) exposure to COVID-19
CPT/HCPCS: 36415; 51702; 71045; 80053; 80305-QW; 81001; 82550; 83605; 83880; 84484; 85025; 85379; 85610; 86140; 87040; 87086; 87088; 87186; 93005; 94640; 96374; 96375; 96376; 99285-25; J0696; J1940; J2310; J7620-GY; U0002

== ENCOUNTER 2021-09-12 10:28 | Inpatient (IN) | payer MEDICARE, MEDICAID ==
[2021-09-12] MEDS ORDERED: tiZANidine 4 MG Tab PO PRN (14:56)
[2021-09-12] MEDS ORDERED: Morphine 15 MG Tab.ER PO PRN (14:56)
[2021-09-12] MEDS ORDERED: Triamcinolone Acetonide 0.1% Crm 15 GM Tube TOP PRN (14:56)
[2021-09-12] MEDS ORDERED: Nitroglycerin 0.4 MG Tab.SL SL PRN (14:56)
[2021-09-12] MEDS ORDERED: Nystatin Crm 30 GM Tube TOP PRN (14:56)
[2021-09-12] MEDS ORDERED: UBROGEPANT 100 MG PO PRN (14:56)
[2021-09-12] MEDS ORDERED: Morphine 15 MG Tab PO PRN (14:56)
[2021-09-12] MEDS ORDERED: Non-Formulary Medication 1 Each (Naloxone Hcl [Narcan] 4 MG Spray) NS PRN (14:56)
[2021-09-12] MEDS ORDERED: [UNRECOGNIZED DRUG - OTHER] SQ SCH (15:00)
[2021-09-12] MEDS ORDERED: ERENUMAB AOOE 140 MG/ML SQ SCH (15:00)
[2021-09-12] MEDS ORDERED: Cholecalciferol (Vitamin D3) 25 MCG Tab PO SCH (15:00)
[2021-09-12] MEDS ORDERED: AUTO INJCT SQ SCH (15:00)
[2021-09-12] MEDS ORDERED: Loratadine 10 MG Tab PO PRN (15:32)
[2021-09-12] MEDS ORDERED: Polyvinyl Alcohol 1.4% Ophth Soln 15 ML Bottle EYEBOTH PRN (15:54)
[2021-09-12] MEDS ORDERED: Naloxone 2 MG/2 ML Syringe IVPUSH PRN (16:21)
[2021-09-12] MEDS: busPIRone 5 MG Tab PO SCH (19:38)
[2021-09-12] MEDS: Pregabalin 100 MG Cap PO SCH ×2 (19:38)
[2021-09-12] MEDS: Montelukast 10 MG Tab PO SCH (19:39)
[2021-09-12] MEDS: LORazepam 0.5 MG Tab PO SCH (19:39)
--- NOTE | 2021-09-12 23:39 | HP ---
CHIEF COMPLAINT: Swing bed placement. HISTORY: Mrs. Parks is a 51-year-old female who was recently transferred from after she presented to [facility] in our emergency room for acute respiratory failure and hypoxia. This was related to an opioid overdose, which now the patient states was intentional for suicide attempt. I believe she was treated appropriately at [facility] in [place], treated for pneumonia as well and given antibiotics for UTI. This happened approximately 1 week ago and she presents back to us for strengthening and conditioning as she suffers from morbid obesity and is unable to care for herself at home. She has had multiple falls over the last months and has been in our facility in the emergency room for low back pain, contusions, etc., repeatedly. PAST MEDICAL HISTORY: Includes a history of bipolar disorder, chronic kidney disease stage 3, chronic pain syndrome, degenerative joint disease, mostly lumbar spine. She has a history of chronic GERD, hyperlipidemia, hypothyroidism, morbid obesity with a BMI over 70, pseudotumor cerebri, and sleep apnea. PAST SURGICAL HISTORY: Diffuse, includes cholecystectomy, multiple colonoscopies, prior gastric bypass. She has had total knee with revision, multiple upper endoscopies, and a prior suprapubic tube placement. MEDICATIONS: Are noted. Please see chart. ALLERGIES: INCLUDE BEE STINGS, COCONUT FLAVOR, TRAMADOL, AND WOOL. SOCIAL HISTORY: The patient has currently been residing with a friend in [place], [place]. She is a former smoker of about a pack a day for approximately 5 years. Denies any smokeless tobacco use. Denies any alcohol use. She does not use any illicit drugs, but has been taking prescription pain pills. PHYSICAL EXAMINATION: VITAL SIGNS: Noted to be normal. Weight is over 420 pounds. GENERAL: The patient is pleasant and cooperative, appears in no distress. HEENT: Grossly benign. NECK: Neck veins are nondistended. LUNGS: Lung sounds are distant but appear clear without rales, rhonchi or wheeze. CARDIAC: Tones are distant and regular. ABDOMEN: Morbidly obese, soft, and nontender. No significant lower extremity edema. ASSESSMENT: 1. SWING BED ADMISSION. 2. MORBID OBESITY WITH BMI GREATER THAN 70. 3. HISTORY OF RECENT NARCOTIC OVERDOSE WITH SUBSEQUENT RESPIRATORY FAILURE. 4. URINARY TRACT INFECTION, RESOLVED. 5. OBSTRUCTIVE SLEEP APNEA. PLAN: The patient will be placed in swing bed for strengthening. PT will be consulted. Orders were signed. AGUSTÍN/JAMILAH /[id number]
[2021-09-13] MEDS: Bumetanide 1 MG Tab PO SCH (07:25)
[2021-09-13] MEDS: Pregabalin 100 MG Cap PO SCH ×3 (07:25→19:45)
[2021-09-13] MEDS: DULoxetine 30 MG Cap PO SCH (07:25)
[2021-09-13] MEDS: busPIRone 5 MG Tab PO SCH ×3 (07:25→19:44)
[2021-09-13] MEDS: Spironolactone 25 MG Tab PO SCH (07:25)
[2021-09-13] MEDS: Calcitriol 0.25 MCG Cap PO SCH (07:25)
[2021-09-13] MEDS: LORazepam 0.5 MG Tab PO SCH ×2 (07:26→19:44)
[2021-09-13] MEDS: Pantoprazole 40 MG Tab.CR PO SCH (07:26)
[2021-09-13] MEDS: Loratadine 10 MG Tab PO SCH (07:26)
[2021-09-13] MEDS: Levothyroxine 125 MCG Tab PO SCH (07:26)
[2021-09-13] MEDS: Cyanocobalamin (Vitamin B12) 1,000 MCG Tab PO SCH (07:26)
[2021-09-13] MEDS: Oxybutynin 5 MG Tab.ER PO SCH (07:26)
[2021-09-13] MEDS ORDERED: EMTRICITABINE PO SCH (08:00)
[2021-09-13] MEDS ORDERED: TENOFOVIR PO SCH (08:00)
[2021-09-13] MEDS ORDERED: [UNRECOGNIZED DRUG - MIXTURE] PO SCH (08:00)
[2021-09-13] MEDS ORDERED: Non-Formulary Medication 1 Each (Duloxetine [Cymbalta] 60 MG Cap) PO SCH (08:00)
[2021-09-13] MEDS: Apixaban 5 MG Tab PO SCH ×2 (09:13→19:44)
[2021-09-13] MEDS: EMTRICITABINE TENOFOVIR PO SCH (09:14)
[2021-09-13] MEDS: EFAVIRENZ 600 MG PO SCH (09:14)
[2021-09-13] MEDS: Ondansetron 4 MG Tab.DIS PO PRN (16:52)
[2021-09-13] MEDS: Montelukast 10 MG Tab PO SCH (19:44)
[2021-09-13] MEDS: Cyclobenzaprine 10 MG Tab PO PRN (22:06)
[2021-09-14] MEDS: Levothyroxine 125 MCG Tab PO SCH (06:27)
[2021-09-14] MEDS: Calcium Carbonate/Vitamin D3 1250 MG-5 MCG Tab PO SCH (07:48)
[2021-09-14] MEDS: Pantoprazole 40 MG Tab.CR PO SCH (07:48)
[2021-09-14] MEDS: LORazepam 0.5 MG Tab PO SCH ×2 (07:49→19:37)
[2021-09-14] MEDS: Oxybutynin 5 MG Tab.ER PO SCH (07:49)
[2021-09-14] MEDS: Bumetanide 1 MG Tab PO SCH (07:49)
[2021-09-14] MEDS: Apixaban 5 MG Tab PO SCH ×2 (07:49→19:37)
[2021-09-14] MEDS: Loratadine 10 MG Tab PO SCH (07:49)
[2021-09-14] MEDS: Spironolactone 25 MG Tab PO SCH (07:50)
[2021-09-14] MEDS: DULoxetine 30 MG Cap PO SCH (07:50)
[2021-09-14] MEDS: Pregabalin 100 MG Cap PO SCH ×3 (07:50→19:35)
[2021-09-14] MEDS: Calcitriol 0.25 MCG Cap PO SCH (07:50)
[2021-09-14] MEDS: busPIRone 5 MG Tab PO SCH ×3 (07:51→19:36)
[2021-09-14] MEDS: EMTRICITABINE TENOFOVIR PO SCH (07:52)
[2021-09-14] MEDS: EFAVIRENZ 600 MG PO SCH (07:52)
[2021-09-14] MEDS: Cyanocobalamin (Vitamin B12) 1,000 MCG Tab PO SCH (07:53)
[2021-09-14] MEDS: Cyclobenzaprine 10 MG Tab PO PRN ×2 (08:33→23:04)
[2021-09-14] MEDS: Montelukast 10 MG Tab PO SCH (19:37)
[2021-09-15] MEDS: busPIRone 5 MG Tab PO SCH (07:04)
[2021-09-15] MEDS: Levothyroxine 125 MCG Tab PO SCH (07:04)
[2021-09-15] MEDS: Apixaban 5 MG Tab PO SCH ×2 (07:05→19:58)
[2021-09-15] MEDS: Cyanocobalamin (Vitamin B12) 1,000 MCG Tab PO SCH (07:05)
[2021-09-15] MEDS: Spironolactone 25 MG Tab PO SCH (07:06)
[2021-09-15] MEDS: Calcitriol 0.25 MCG Cap PO SCH (07:06)
[2021-09-15] MEDS: DULoxetine 30 MG Cap PO SCH (07:06)
[2021-09-15] MEDS: Pregabalin 100 MG Cap PO SCH ×3 (07:07→19:59)
[2021-09-15] MEDS: Loratadine 10 MG Tab PO SCH (07:07)
[2021-09-15] MEDS: LORazepam 0.5 MG Tab PO SCH (07:08)
[2021-09-15] MEDS: Bumetanide 1 MG Tab PO SCH (07:08)
[2021-09-15] MEDS: Oxybutynin 5 MG Tab.ER PO SCH (07:08)
[2021-09-15] MEDS: Pantoprazole 40 MG Tab.CR PO SCH (07:17)
[2021-09-15] MEDS: Calcium Carbonate/Vitamin D3 1250 MG-5 MCG Tab PO SCH (07:17)
[2021-09-15] MEDS: EMTRICITABINE TENOFOVIR PO SCH (07:23)
[2021-09-15] MEDS: EFAVIRENZ 600 MG PO SCH (07:23)
[2021-09-15] MEDS: Ondansetron 4 MG Tab.DIS PO PRN (09:42)
[2021-09-15] MEDS: Cyclobenzaprine 10 MG Tab PO PRN (10:00)
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
[2021-09-15] MEDS: LURASIDONE HCL 40 MG PO SCH (12:02)
[2021-09-15] MEDS: Montelukast 10 MG Tab PO SCH (19:58)
[2021-09-15] MEDS: rOPINIRole 0.25 MG Tab PO SCH (19:58)
[2021-09-15] MEDS: LORazepam 0.5 MG Tab PO PRN (20:04)
[2021-09-16] MEDS: Cyanocobalamin (Vitamin B12) 1,000 MCG Tab PO SCH (07:34)
[2021-09-16] MEDS: Apixaban 5 MG Tab PO SCH ×2 (07:34→19:46)
[2021-09-16] MEDS: Pantoprazole 40 MG Tab.CR PO SCH (07:34)
[2021-09-16] MEDS: Loratadine 10 MG Tab PO SCH (07:34)
[2021-09-16] MEDS: Calcium Carbonate/Vitamin D3 1250 MG-5 MCG Tab PO SCH (07:34)
[2021-09-16] MEDS: Levothyroxine 125 MCG Tab PO SCH (07:34)
[2021-09-16] MEDS: Bumetanide 1 MG Tab PO SCH (07:35)
[2021-09-16] MEDS: LURASIDONE HCL 40 MG PO SCH (07:35)
[2021-09-16] MEDS: Calcitriol 0.25 MCG Cap PO SCH (07:35)
[2021-09-16] MEDS: Oxybutynin 5 MG Tab.ER PO SCH (07:35)
[2021-09-16] MEDS: Pregabalin 100 MG Cap PO SCH ×3 (07:35→19:45)
[2021-09-16] MEDS: Spironolactone 25 MG Tab PO SCH (07:35)
[2021-09-16] MEDS: DULoxetine 30 MG Cap PO SCH (07:35)
[2021-09-16] MEDS: EMTRICITABINE TENOFOVIR PO SCH (07:36)
[2021-09-16] MEDS: EFAVIRENZ 600 MG PO SCH (07:37)
[2021-09-16] MEDS: Ondansetron 4 MG Tab.DIS PO PRN (09:05)
[2021-09-16] MEDS: LORazepam 0.5 MG Tab PO PRN ×2 (09:05→19:45)
[2021-09-16] MEDS: Albuterol 8 GM Inhaler INH PRN (09:09)
[2021-09-16] MEDS: rOPINIRole 0.25 MG Tab PO SCH (19:44)
[2021-09-16] MEDS: Montelukast 10 MG Tab PO SCH (19:45)
--- NOTE | 2021-09-16 23:18 | PCM.PN ---
- General Info Date of Service: 09/16/21 Functional Status: Reports: Pain Controlled, Tolerating Diet (RN reports patient has been eating and snacking all day without difficulty. ). Denies: Ambulating - Review of Systems General: Reports: No Symptoms HEENT: Reports: No Symptoms Pulmonary: Reports: Shortness of Breath, Pleuritic Chest Pain, Cough. Denies: Sputum Cardiovascular: Denies: Chest Pain, Palpitations, Edema, Lightheadedness Gastrointestinal: Reports: Diarrhea (earlier today), Nausea (earlier today) Genitourinary: Reports: No Symptoms Musculoskeletal: Reports: No Symptoms Skin: Reports: No Symptoms Neurological: Reports: No Symptoms Psychiatric: Reports: No Symptoms - Patient Data Vitals - Most Recent: Last Vital Signs Temp 97.6 F 09/16/21 20:00 Pulse 83 09/16/21 20:00 Resp 18 09/16/21 20:00 BP 118/62 09/16/21 20:00 Pulse Ox 92 L 09/16/21 20:00 Weight - Most Recent: 422 lb Lab Results Last 24 Hours: Laboratory Results - last 24 hr 09/16/21 09/16/21 09/16/21 Range/Units 21:55 21:55 21:55 WBC 7.8 (4.0-11.0) 10^3/uL RBC 4.19 (4.00-5.50) x10^6/uL Hgb 11.7 L (12.0-16.0) g/dL Hct 36.2 L (37.0-47.0) % MCV 86.4 (83.0-97.0) fL MCH 27.9 (27.0-32.0) pg MCHC 32.3 (32.0-36.0) g/dL RDW Coeff of Nando 15.8 H (11.0-15.0) % Plt Count 427 H (150-400) 10^3/uL Immature Gran % (Auto) 0.3 (0.0-4.9) % Neut % (Auto) 59.3 (41-71) % Lymph % (Auto) 26.1 (24-44) % [place] % (Auto) 11.0 H (0-10) % Eos % (Auto) 2.1 (0-6) % Baso % (Auto) 1.2 H (0-1) % Neut # (Auto) 4.61 (1.80-8.00) x10^3/uL Lymph # (Auto) 2.02 (0.60-5.00) 10^3/uL [place] # (Auto) 0.85 (0.00-1.50) 10^3/uL Eos # (Auto) 0.16 (0.00-1.50) 10^3/uL Baso # (Auto) 0.09 (0.00-0.50) 10^3/uL Immature Gran # (Auto) 0.02 (0.00-0.49) 10^3/uL D-Dimer, Quantitative 1.56 H (0.00-0.50) Sodium 139 (136-145) mEq/L Potassium 4.9 (3.5-5.0) mEq/L Chloride 102 (98-106) mEq/L Carbon Dioxide 29 (21-32) mmol/L BUN 30 H (7-18) mg/dL Creatinine 1.6 H (0.6-1.0) mg/dL Est Cr Clr Drug Dosing 41.36 mL/min Estimated GFR (MDRD) 34 L (>=60) mL/min Glucose 122 H (75-99) mg/dL Lactic Acid (0.4-2.0) mmol/L Calcium 8.6 (8.4-10.1) mg/dL Total Bilirubin 0.2 (0.0-1.0) mg/dL AST 20 (15-37) U/L ALT 27 (12-78) U/L Alkaline Phosphatase 132 H (46-116) U/L Lactate Dehydrogenase 182 (100-190) U/L Creatine Kinase 34 (21-215) U/L Troponin I High Sens 12.2 (<=51) pg/mL C-Reactive Protein 0.5 (0.2-0.8) mg/dL Total Protein 7.0 (6.4-8.2) g/dL Albumin 2.4 L (3.4-5.0) g/dL SARS CoV-2 RNA Rapid ARACELY (NEGATIVE) 09/16/21 09/16/21 Range/Units 21:55 21:55 WBC (4.0-11.0) 10^3/uL RBC (4.00-5.50) x10^6/uL Hgb (12.0-16.0) g/dL Hct (37.0-47.0) % MCV (83.0-97.0) fL MCH (27.0-32.0) pg MCHC (32.0-36.0) g/dL RDW Coeff of Nando (11.0-15.0) % Plt Count (150-400) 10^3/uL Immature Gran % (Auto) (0.0-4.9) % Neut % (Auto) (41-71) % Lymph % (Auto) (24-44) % [place] % (Auto) (0-10) % Eos % (Auto) (0-6) % Baso % (Auto) (0-1) % Neut # (Auto) (1.80-8.00) x10^3/uL Lymph # (Auto) (0.60-5.00) 10^3/uL [place] # (Auto) (0.00-1.50) 10^3/uL Eos # (Auto) (0.00-1.50) 10^3/uL Baso # (Auto) (0.00-0.50) 10^3/uL Immature Gran # (Auto) (0.00-0.49) 10^3/uL D-Dimer, Quantitative (0.00-0.50) Sodium (136-145) mEq/L Potassium (3.5-5.0) mEq/L Chloride (98-106) mEq/L Carbon Dioxide (21-32) mmol/L BUN (7-18) mg/dL Creatinine (0.6-1.0) mg/dL Est Cr Clr Drug Dosing mL/min Estimated GFR (MDRD) (>=60) mL/min Glucose (75-99) mg/dL Lactic Acid 1.2 (0.4-2.0) mmol/L Calcium (8.4-10.1) mg/dL Total Bilirubin (0.0-1.0) mg/dL AST (15-37) U/L ALT (12-78) U/L Alkaline Phosphatase (46-116) U/L Lactate Dehydrogenase (100-190) U/L Creatine Kinase (21-215) U/L Troponin I High Sens (<=51) pg/mL C-Reactive Protein (0.2-0.8) mg/dL Total Protein (6.4-8.2) g/dL Albumin (3.4-5.0) g/dL SARS CoV-2 RNA Rapid ARACELY Negative (NEGATIVE) Med Orders - Current: Current Medications Albuterol (Albuterol 8 Gm Inhaler) 0 gm INH ASDIRECTED PRN PRN Reason: Shortness of Breath Last Admin: 09/16/21 09:09 Dose: 2 puff Documented by: Apixaban (Apixaban 5 Mg Tab) 5 mg PO BID [facility] Last Admin: 09/16/21 19:46 Dose: 5 mg Documented by: Artificial Tears (Polyvinyl Alcohol 1.4% Ophth Soln 15 Ml Bottle) 0 ml EYEBOTH TID PRN PRN Reason: Dry Eyes Bumetanide (Bumetanide 1 Mg Tab) 1 mg PO DAILY [facility] Last Admin: 09/16/21 07:35 Dose: 1 mg Documented by: Calcitriol (Calcitriol 0.25 Mcg Cap) 0.5 mcg PO DAILY [facility] Last Admin: 09/16/21 07:35 Dose: 0.5 mcg Documented by: Calcium Carbonate (Calcium Carbonate/Vitamin D3 1250 Mg-5 Mcg Tab) 1 tab PO LOBO LY [facility] Last Admin: 09/16/21 07:34 Dose: 1 tab Documented by: Cyanocobalamin (Cyanocobalamin (Vitamin B12) 1,000 Mcg Tab) 500 mcg PO DAILY [facility] Last Admin: 09/16/21 07:34 Dose: 500 mcg Documented by: Cyclobenzaprine HCl (Cyclobenzaprine 10 Mg Tab) 10 mg PO TID PRN PRN Reason: Muscle Spasm - Painful Last Admin: 09/15/21 10:00 Dose: 10 mg Documented by: Duloxetine HCl (Duloxetine 30 Mg Cap) 90 mg PO DAILY [facility] Last Admin: 09/16/21 07:35 Dose: 90 mg Documented by: Levothyroxine Sodium (Levothyroxine 125 Mcg Tab) 125 mcg PO ACBREAKFAST [facility] Last Admin: 09/16/21 07:34 Dose: 125 mcg Documented by: Loratadine (Loratadine 10 Mg Tab) 10 mg PO DAILY [facility] Last Admin: 09/16/21 07:34 Dose: 10 mg Documented by: Lorazepam (Lorazepam 0.5 Mg Tab) 1 mg PO BID PRN PRN Reason: Anxiety Last Admin: 09/16/21 19:45 Dose: 1 mg Documented by: Medroxyprogesterone Acetate (Medroxyprogesterone 2.5 Mg Tab) 10 mg PO DAILY [facility] Last Admin: 09/16/21 07:35 Dose: 10 mg Documented by: Montelukast Sodium (Montelukast 10 Mg Tab) 10 mg PO BEDTIME [facility] Last Admin: 09/16/21 19:45 Dose: 10 mg Documented by: Morphine Sulfate (Morphine 15 Mg Tab.Er) 45 mg PO Q12H PRN PRN Reason: Pain Morphine Sulfate (Morphine 15 Mg Tab) 15 mg PO Q6H PRN PRN Reason: Pain Naloxone HCl (Naloxone 2 Mg/2 Ml Syringe) 1 mg IVPUSH ASDIRECTED PRN PRN Reason: Respiratory Depression Nitroglycerin (Nitroglycerin 0.4 Mg Tab.Sl) 0.4 mg SL ASDIRECTED PRN PRN Reason: Chest Pain Non-Formulary Medication (Erenumab-Aooe [Aimovig Autoinjector]) 140 mg SQ ASDIRECTED [facility] Lurasidone Hcl [ Latuda] 40 Mg Tablet Ptom 0 tab PO DAILY [facility] Last Admin: 09/16/21 07:35 Dose: 0.5 tab Documented by: Non-Formulary Medication (Ubrogepant [Ubrelvy]) 1 tab PO BID PRN PRN Reason: Headache Emtricitabine- Tenofovir (Descovy) 200-25 Mg Tab Ptom 0 tab PO DAILY [facility] Last Admin: 09/16/21 07:36 Dose: 1 tab Documented by: Efavirenz (Sustiva) (600mg Tab Ptom) 0 mg PO DAILY [facility] Last Admin: 09/16/21 07:37 Dose: 1 mg Documented by: Vitamin D3 1.25mg (Cap Ptom) 0 cap PO MoWeFr@0800 [facility] Last Admin: 09/15/21 08:29 Dose: 1 cap Documented by: Nystatin (Nystatin Crm 30 Gm Tube) 0 gm TOP TID PRN PRN Reason: Rash Last Admin: 09/13/21 04:20 Dose: 1 applic Documented by: Ondansetron HCl (Ondansetron 4 Mg Tab.Dis) 4 mg PO Q6H PRN PRN Reason: Nausea/Vomiting Last Admin: 09/16/21 09:05 Dose: 4 mg Documented by: Oxybutynin Chloride (Oxybutynin 5 Mg Tab.Er) 15 mg PO DAILY [facility] Last Admin: 09/16/21 07:35 Dose: 15 mg Documented by: Pantoprazole Sodium (Pantoprazole 40 Mg Tab.Cr) 40 mg PO DAILY [facility] Last Admin: 09/16/21 07:34 Dose: 40 mg Documented by: Pregabalin (Pregabalin 100 Mg Cap) 300 mg PO BEDTIME [facility] Last Admin: 09/16/21 19:45 Dose: 300 mg Documented by: Pregabalin (Pregabalin 100 Mg Cap) 400 mg PO DAILY@0800,1400 [facility] Last Admin: 09/16/21 13:26 Dose: 400 mg Documented by: Ropinirole HCl (Ropinirole 0.25 Mg Tab) 0.125 mg PO BEDTIME [facility] Last Admin: 09/16/21 19:44 Dose: 0.125 mg Documented by: Spironolactone (Spironolactone 25 Mg Tab) 50 mg PO DAILY [facility] Last Admin: 09/16/21 07:35 Dose: 50 mg Documented by: Triamcinolone Acetonide (Triamcinolone Acetonide 0.1% Crm 15 Gm Tube) 0 gm TOP TID PRN PRN Reason: Rash Discontinued Medications Buspirone HCl (Buspirone 5 Mg Tab) 20 mg PO TID [facility] Last Admin: 09/15/21 07:04 Dose: 20 mg Documented by: Cholecalciferol (Cholecalciferol (Vitamin D3) 25 Mcg Tab) 1,250 mcg PO ASDIRECTED [facility] Loratadine (Loratadine 10 Mg Tab) 10 mg PO DAILY PRN PRN Reason: Allergies Lorazepam (Lorazepam 0.5 Mg Tab) 1 mg PO BID [facility] Last Admin: 09/15/21 07:08 Dose: 1 mg Documented by: Non-Formulary Medication (Duloxetine [Cymbalta]) 1 cap PO DAILY [facility] Non-Formulary Medication (Efavirenz/Lamivu/Tenofov Disop [Symfi 600-300-300 Mg Tablet]) 1 each PO DAILY [facility] Last Admin: 09/13/21 09:22 Dose: Not Given Documented by: Non-Formulary Medication (Emtricitabine/Tenofovir) 1 tab PO DAILY [facility] Last Admin: 09/13/21 09:22 Dose: Not Given Documented by: Non-Formulary Medication (Naloxone Hcl [Narcan]) 4 mg NS ASDIRECTED PRN PRN Reason: Other Vitamin D3 1.25mg (Cap Ptom) 0 cap PO DAILY [facility] Last Admin: 09/13/21 09:13 Dose: 1 cap Documented by: Pregabalin (Pregabalin 100 Mg Cap) 400 mg PO DAILY@0800,1730 [facility] Last Admin: 09/13/21 07:25 Dose: 400 mg Documented by: Tizanidine HCl (Tizanidine 4 Mg Tab) 4 mg PO TID PRN PRN Reason: Muscle Spasm - Painful - Exam Quality Assessment: Supplemental Oxygen (5L NC 96%) General: Alert, Oriented, Cooperative Neck: Supple, Trachea Midline, No JVD Lungs: Normal Respiratory Effort, Decreased Breath Sounds (but clear) Cardiovascular: Regular Rate, Regular Rhythm GI/Abdominal Exam: Non-Tender, Other (obesity unable to identify landmarks) Back Exam: Normal Inspection (tattoos on back) Extremities: Normal Inspection Peripheral Pulses: 2+: Radial (L), Radial (R) Skin: Warm, Dry, Intact Psy/Mental Status: Alert, Normal Affect, Normal Mood #1 Interpretation EKG Date: 09/16/21 Time: 21:57 Rhythm: NSR Rate (Beats/Min): 92 [place]: Normal P-Wave: Present QRS: Normal ST-T: Normal QT: Normal - Patient Data Lab Results Last 24 hrs: Laboratory Results - last 24 hr 09/16/21 09/16/21 09/16/21 Range/Units 21:55 21:55 21:55 WBC 7.8 (4.0-11.0) 10^3/uL RBC 4.19 (4.00-5.50) x10^6/uL Hgb 11.7 L (12.0-16.0) g/dL Hct 36.2 L (37.0-47.0) % MCV 86.4 (83.0-97.0) fL MCH 27.9 (27.0-32.0) pg MCHC 32.3 (32.0-36.0) g/dL RDW Coeff of Nando 15.8 H (11.0-15.0) % Plt Count 427 H (150-400) 10^3/uL Immature Gran % (Auto) 0.3 (0.0-4.9) % Neut % (Auto) 59.3 (41-71) % Lymph % (Auto) 26.1 (24-44) % [place] % (Auto) 11.0 H (0-10) % Eos % (Auto) 2.1 (0-6) % Baso % (Auto) 1.2 H (0-1) % Neut # (Auto) 4.61 (1.80-8.00) x10^3/uL Lymph # (Auto) 2.02 (0.60-5.00) 10^3/uL [place] # (Auto) 0.85 (0.00-1.50) 10^3/uL Eos # (Auto) 0.16 (0.00-1.50) 10^3/uL Baso # (Auto) 0.09 (0.00-0.50) 10^3/uL Immature Gran # (Auto) 0.02 (0.00-0.49) 10^3/uL D-Dimer, Quantitative 1.56 H (0.00-0.50) Sodium 139 (136-145) mEq/L Potassium 4.9 (3.5-5.0) mEq/L Chloride 102 (98-106) mEq/L Carbon Dioxide 29 (21-32) mmol/L BUN 30 H (7-18) mg/dL Creatinine 1.6 H (0.6-1.0) mg/dL Est Cr Clr Drug Dosing 41.36 mL/min Estimated GFR (MDRD) 34 L (>=60) mL/min Glucose 122 H (75-99) mg/dL Lactic Acid (0.4-2.0) mmol/L Calcium 8.6 (8.4-10.1) mg/dL Total Bilirubin 0.2 (0.0-1.0) mg/dL AST 20 (15-37) U/L ALT 27 (12-78) U/L Alkaline Phosphatase 132 H (46-116) U/L Lactate Dehydrogenase 182 (100-190) U/L Creatine Kinase 34 (21-215) U/L Troponin I High Sens 12.2 (<=51) pg/mL C-Reactive Protein 0.5 (0.2-0.8) mg/dL Total Protein 7.0 (6.4-8.2) g/dL Albumin 2.4 L (3.4-5.0) g/dL SARS CoV-2 RNA Rapid ARACELY (NEGATIVE) 09/16/21 09/16/21 Range/Units 21:55 21:55 WBC (4.0-11.0) 10^3/uL RBC (4.00-5.50) x10^6/uL Hgb (12.0-16.0) g/dL Hct (37.0-47.0) % MCV (83.0-97.0) fL MCH (27.0-32.0) pg MCHC (32.0-36.0) g/dL RDW Coeff of Nando (11.0-15.0) % Plt Count (150-400) 10^3/uL Immature Gran % (Auto) (0.0-4.9) % Neut % (Auto) (41-71) % Lymph % (Auto) (24-44) % [place] % (Auto) (0-10) % Eos % (Auto) (0-6) % Baso % (Auto) (0-1) % Neut # (Auto) (1.80-8.00) x10^3/uL Lymph # (Auto) (0.60-5.00) 10^3/uL [place] # (Auto) (0.00-1.50) 10^3/uL Eos # (Auto) (0.00-1.50) 10^3/uL Baso # (Auto) (0.00-0.50) 10^3/uL Immature Gran # (Auto) (0.00-0.49) 10^3/uL D-Dimer, Quantitative (0.00-0.50) Sodium (136-145) mEq/L Potassium (3.5-5.0) mEq/L Chloride (98-106) mEq/L Carbon Dioxide (21-32) mmol/L BUN (7-18) mg/dL Creatinine (0.6-1.0) mg/dL Est Cr Clr Drug Dosing mL/min Estimated GFR (MDRD) (>=60) mL/min Glucose (75-99) mg/dL Lactic Acid 1.2 (0.4-2.0) mmol/L Calcium (8.4-10.1) mg/dL Total Bilirubin (0.0-1.0) mg/dL AST (15-37) U/L ALT (12-78) U/L Alkaline Phosphatase (46-116) U/L Lactate Dehydrogenase (100-190) U/L Creatine Kinase (21-215) U/L Troponin I High Sens (<=51) pg/mL C-Reactive Protein (0.2-0.8) mg/dL Total Protein (6.4-8.2) g/dL Albumin (3.4-5.0) g/dL SARS CoV-2 RNA Rapid ARACELY Negative (NEGATIVE) Result Diagrams: 09/16/21 21:55 09/16/21 21:55 Sepsis Event Note - Evaluation Sepsis Screening Result: No Definite Risk - Focused Exam Vital Signs: Vital Signs Temp Pulse Resp BP Pulse Ox 09/16/21 20:00 97.6 F 83 18 118/62 92 L - Problem List Review Problem List Initiated/Reviewed/Updated: Yes - My Orders Last 24 Hours: My Active Orders 09/16/21 22:53 Chest 1V Frontal [CR] Stat - Plan Plan:: 09/16/21 2300 This patient is a 51 year old female there for swing bed admission. Patient reports that today throughout the day she has had intermittent shortness of breath and cough. Patient reports that tonight it became worse. Patient reports that it hurts in her chest to take big deep breaths. DOMONIQUE Francois called me and reported the patient oxygen was 85% 3L NC, then was turned up to 5L NC to 90%. Patients labs drawn wbc 7.8, trop negative, CRP not elevated, Covid negative. Her D-dimer is elevated at 1.56, She is not tachycardic and is on Eliquis preventative at 5mg BID. Patient BUN is 30, CR 1.6, which is near a baseline for her from previous labs with a 4.1 on 09/03/21. She is also to obese to fit on the CT scanner per [facility] emergency medical tech. When I assessed patient, had her role to her side to take big deep breaths while listening to lungs, she coughed and oxygen was 97% on 5L NC. I turned her oxygen down to 3L NC and her saturation is now 94%. Patient has been on 3L NC oxygen while here swing. Portable CXR was done. Old CXR done 09/03/21 shows interstitual infiltrates consistent with COVID- 19. Will see what radiologist read is on this CXR. At this time, will await this radiology read. 09/17/21 0300 CXR from radiologist reports Worsening aeration and new hypinflation. Extensive bilateral bronchial wall thickening and confluent alveolar/interstial opacities remain stable otherwise. Right cardiac border and mediastinal contours are primarily obscured. I will treat with Levaquin and duonebs. I will also start fluids for CR at 1.6. Current oxygen is 93% on 3L NC at this time. Patient resting comfortably.
[2021-09-17] MEDS ORDERED: Sodium Chloride 0.9% 1,000 ML IV SCH (03:00)
[2021-09-17] MEDS: Levofloxacin/Dextrose 5%-Water 750 MG in Premix Bag 1 BAG IV SCH (03:57)
[2021-09-17] MEDS: Pantoprazole 40 MG Tab.CR PO SCH (07:26)
[2021-09-17] MEDS: Calcitriol 0.25 MCG Cap PO SCH (07:26)
[2021-09-17] MEDS: Cyanocobalamin (Vitamin B12) 1,000 MCG Tab PO SCH (07:27)
[2021-09-17] MEDS: DULoxetine 30 MG Cap PO SCH (07:27)
[2021-09-17] MEDS: Pregabalin 100 MG Cap PO SCH ×3 (07:27→19:50)
[2021-09-17] MEDS: Levothyroxine 125 MCG Tab PO SCH (07:27)
[2021-09-17] MEDS: Apixaban 5 MG Tab PO SCH ×2 (07:27→19:50)
[2021-09-17] MEDS: Loratadine 10 MG Tab PO SCH (07:27)
[2021-09-17] MEDS: Calcium Carbonate/Vitamin D3 1250 MG-5 MCG Tab PO SCH (07:27)
[2021-09-17] MEDS: Spironolactone 25 MG Tab PO SCH (07:28)
[2021-09-17] MEDS: Bumetanide 1 MG Tab PO SCH (07:28)
[2021-09-17] MEDS: Oxybutynin 5 MG Tab.ER PO SCH (07:28)
[2021-09-17] MEDS: EFAVIRENZ 600 MG PO SCH (07:33)
[2021-09-17] MEDS: LURASIDONE HCL 40 MG PO SCH (07:33)
[2021-09-17] MEDS: EMTRICITABINE TENOFOVIR PO SCH (07:33)
[2021-09-17] MEDS: Albuterol 8 GM Inhaler INH PRN (08:55)
[2021-09-17] MEDS: Albuterol/Ipratropium 3.0-0.5 MG/3 ML Neb Soln NEB PRN ×2 (09:52→19:50)
[2021-09-17] MEDS: LORazepam 0.5 MG Tab PO PRN (09:52)
[2021-09-17] MEDS: rOPINIRole 0.25 MG Tab PO SCH (19:50)
[2021-09-17] MEDS: Montelukast 10 MG Tab PO SCH (19:50)
[2021-09-18] MEDS: Oxybutynin 5 MG Tab.ER PO SCH (07:48)
[2021-09-18] MEDS: Pantoprazole 40 MG Tab.CR PO SCH (07:49)
[2021-09-18] MEDS: Levothyroxine 125 MCG Tab PO SCH (07:49)
[2021-09-18] MEDS: Pregabalin 100 MG Cap PO SCH ×3 (07:49→21:16)
[2021-09-18] MEDS: Spironolactone 25 MG Tab PO SCH (07:49)
[2021-09-18] MEDS: Apixaban 5 MG Tab PO SCH ×2 (07:50→21:17)
[2021-09-18] MEDS: DULoxetine 30 MG Cap PO SCH (07:50)
[2021-09-18] MEDS: Calcium Carbonate/Vitamin D3 1250 MG-5 MCG Tab PO SCH (07:50)
[2021-09-18] MEDS: Bumetanide 1 MG Tab PO SCH (07:50)
[2021-09-18] MEDS: Loratadine 10 MG Tab PO SCH (07:50)
[2021-09-18] MEDS: Cyanocobalamin (Vitamin B12) 1,000 MCG Tab PO SCH (07:50)
[2021-09-18] MEDS: Calcitriol 0.25 MCG Cap PO SCH (07:51)
[2021-09-18] MEDS: EFAVIRENZ 600 MG PO SCH (07:53)
[2021-09-18] MEDS: EMTRICITABINE TENOFOVIR PO SCH (07:53)
[2021-09-18] MEDS: LURASIDONE HCL 40 MG PO SCH (07:54)
[2021-09-18] MEDS ORDERED: Sodium Chloride 0.9% 1,000 ML IV SCH (12:00)
[2021-09-18] MEDS: rOPINIRole 0.25 MG Tab PO SCH (21:16)
[2021-09-18] MEDS: Montelukast 10 MG Tab PO SCH (21:17)
[2021-09-18] MEDS: LORazepam 0.5 MG Tab PO PRN (23:39)
[2021-09-19] MEDS: Levofloxacin/Dextrose 5%-Water 750 MG in Premix Bag 1 BAG IV SCH ×2 (04:33→07:44)
[2021-09-19] MEDS: Oxybutynin 5 MG Tab.ER PO SCH (07:39)
[2021-09-19] MEDS: Calcium Carbonate/Vitamin D3 1250 MG-5 MCG Tab PO SCH (07:40)
[2021-09-19] MEDS: Pantoprazole 40 MG Tab.CR PO SCH (07:40)
[2021-09-19] MEDS: Spironolactone 25 MG Tab PO SCH (07:40)
[2021-09-19] MEDS: Calcitriol 0.25 MCG Cap PO SCH (07:41)
[2021-09-19] MEDS: DULoxetine 30 MG Cap PO SCH (07:41)
[2021-09-19] MEDS: Levothyroxine 125 MCG Tab PO SCH (07:41)
[2021-09-19] MEDS: Cyanocobalamin (Vitamin B12) 1,000 MCG Tab PO SCH (07:42)
[2021-09-19] MEDS: LURASIDONE HCL 40 MG PO SCH (07:43)
[2021-09-19] MEDS: Loratadine 10 MG Tab PO SCH (07:43)
[2021-09-19] MEDS: Bumetanide 1 MG Tab PO SCH (07:43)
[2021-09-19] MEDS: Apixaban 5 MG Tab PO SCH ×2 (07:43→19:30)
[2021-09-19] MEDS: EFAVIRENZ 600 MG PO SCH (07:45)
[2021-09-19] MEDS: EMTRICITABINE TENOFOVIR PO SCH (07:45)
[2021-09-19] MEDS: Pregabalin 100 MG Cap PO SCH ×3 (07:46→19:30)
[2021-09-19] MEDS: LORazepam 0.5 MG Tab PO PRN (10:34)
[2021-09-19] MEDS: Cyclobenzaprine 10 MG Tab PO PRN (16:39)
[2021-09-19] MEDS: rOPINIRole 0.25 MG Tab PO SCH (19:32)
[2021-09-19] MEDS: Montelukast 10 MG Tab PO SCH (19:33)
[2021-09-20] MEDS: Levothyroxine 125 MCG Tab PO SCH (07:02)
[2021-09-20] MEDS: EFAVIRENZ 600 MG PO SCH (07:41)
[2021-09-20] MEDS: EMTRICITABINE TENOFOVIR PO SCH (07:41)
[2021-09-20] MEDS: LURASIDONE HCL 40 MG PO SCH (07:42)
[2021-09-20] MEDS: Oxybutynin 5 MG Tab.ER PO SCH (07:43)
[2021-09-20] MEDS: Pregabalin 100 MG Cap PO SCH ×3 (07:43→19:20)
[2021-09-20] MEDS: DULoxetine 30 MG Cap PO SCH (07:43)
[2021-09-20] MEDS: Spironolactone 25 MG Tab PO SCH (07:44)
[2021-09-20] MEDS: Pantoprazole 40 MG Tab.CR PO SCH (07:44)
[2021-09-20] MEDS: Calcium Carbonate/Vitamin D3 1250 MG-5 MCG Tab PO SCH (07:44)
[2021-09-20] MEDS: Apixaban 5 MG Tab PO SCH ×2 (07:44→19:22)
[2021-09-20] MEDS: Loratadine 10 MG Tab PO SCH (07:44)
[2021-09-20] MEDS: Bumetanide 1 MG Tab PO SCH (07:44)
[2021-09-20] MEDS: Cyanocobalamin (Vitamin B12) 1,000 MCG Tab PO SCH (07:44)
[2021-09-20] MEDS: Calcitriol 0.25 MCG Cap PO SCH (08:10)
[2021-09-20] MEDS: LORazepam 0.5 MG Tab PO PRN (12:55)
[2021-09-20] MEDS ORDERED: Ketorolac 30 MG/ML SDV IVPUSH ONE (16:24)
[2021-09-20] MEDS: rOPINIRole 0.25 MG Tab PO SCH (19:21)
[2021-09-20] MEDS: Montelukast 10 MG Tab PO SCH (19:21)
[2021-09-21] MEDS: LORazepam 0.5 MG Tab PO PRN ×2 (03:53→14:36)
[2021-09-21] MEDS: Levothyroxine 125 MCG Tab PO SCH (06:31)
[2021-09-21] MEDS: DULoxetine 30 MG Cap PO SCH (08:04)
[2021-09-21] MEDS: Pregabalin 100 MG Cap PO SCH ×3 (08:04→19:31)
[2021-09-21] MEDS: Cyanocobalamin (Vitamin B12) 1,000 MCG Tab PO SCH (08:04)
[2021-09-21] MEDS: Oxybutynin 5 MG Tab.ER PO SCH (08:04)
[2021-09-21] MEDS: Spironolactone 25 MG Tab PO SCH (08:05)
[2021-09-21] MEDS: Bumetanide 1 MG Tab PO SCH (08:05)
[2021-09-21] MEDS: Loratadine 10 MG Tab PO SCH (08:05)
[2021-09-21] MEDS: Calcium Carbonate/Vitamin D3 1250 MG-5 MCG Tab PO SCH (08:06)
[2021-09-21] MEDS: Calcitriol 0.25 MCG Cap PO SCH (08:06)
[2021-09-21] MEDS: Levofloxacin/Dextrose 5%-Water 750 MG in Premix Bag 1 BAG IV SCH ×2 (08:06→11:07)
[2021-09-21] MEDS: Apixaban 5 MG Tab PO SCH ×2 (08:06→19:30)
[2021-09-21] MEDS: Pantoprazole 40 MG Tab.CR PO SCH (08:06)
[2021-09-21] MEDS: EMTRICITABINE TENOFOVIR PO SCH (08:17)
[2021-09-21] MEDS: LURASIDONE HCL 40 MG PO SCH (08:17)
[2021-09-21] MEDS: EFAVIRENZ 600 MG PO SCH (08:18)
[2021-09-21] MEDS: diphenhydrAMINE 50 MG/ML SDV IVPUSH PRN ×2 (11:00→19:32)
[2021-09-21] MEDS: Levofloxacin 500 MG Tab PO SCH (11:15)
[2021-09-21] MEDS: Cyclobenzaprine 10 MG Tab PO PRN (12:14)
[2021-09-21] MEDS ORDERED: SUMAtriptan 25 MG Tab PO ONE (16:49)
[2021-09-21] MEDS: rOPINIRole 0.25 MG Tab PO SCH (19:32)
[2021-09-21] MEDS: Montelukast 10 MG Tab PO SCH (19:32)
[2021-09-22] MEDS: Levothyroxine 125 MCG Tab PO SCH (06:26)
[2021-09-22] MEDS: diphenhydrAMINE 50 MG/ML SDV IVPUSH PRN ×2 (06:51→17:42)
[2021-09-22] MEDS: Apixaban 5 MG Tab PO SCH ×2 (07:46→19:29)
[2021-09-22] MEDS: Pantoprazole 40 MG Tab.CR PO SCH (07:46)
[2021-09-22] MEDS: DULoxetine 30 MG Cap PO SCH (07:46)
[2021-09-22] MEDS: Loratadine 10 MG Tab PO SCH (07:46)
[2021-09-22] MEDS: Pregabalin 100 MG Cap PO SCH ×3 (07:48→19:28)
[2021-09-22] MEDS: Calcitriol 0.25 MCG Cap PO SCH (07:49)
[2021-09-22] MEDS: Oxybutynin 5 MG Tab.ER PO SCH (07:50)
[2021-09-22] MEDS: Spironolactone 25 MG Tab PO SCH (07:50)
[2021-09-22] MEDS: Calcium Carbonate/Vitamin D3 1250 MG-5 MCG Tab PO SCH (07:50)
[2021-09-22] MEDS: Cyanocobalamin (Vitamin B12) 1,000 MCG Tab PO SCH (07:51)
[2021-09-22] MEDS: Bumetanide 1 MG Tab PO SCH (07:51)
[2021-09-22] MEDS: EFAVIRENZ 600 MG PO SCH (07:53)
[2021-09-22] MEDS: EMTRICITABINE TENOFOVIR PO SCH (07:54)
[2021-09-22] MEDS: LURASIDONE HCL 40 MG PO SCH (07:55)
[2021-09-22] MEDS: LORazepam 0.5 MG Tab PO PRN ×2 (08:41→22:04)
[2021-09-22] MEDS: Levofloxacin 500 MG Tab PO SCH (11:53)
[2021-09-22] MEDS: Cyclobenzaprine 10 MG Tab PO PRN (15:00)
[2021-09-22] MEDS: Ketorolac 10 MG Tab PO PRN (17:41)
[2021-09-22] MEDS: Ondansetron 4 MG Tab.DIS PO PRN (17:42)
[2021-09-22] MEDS: rOPINIRole 0.25 MG Tab PO SCH (19:27)
[2021-09-22] MEDS: diphenhydrAMINE 25 MG Cap PO PRN (19:27)
[2021-09-22] MEDS: Montelukast 10 MG Tab PO SCH (19:27)
[2021-09-23] MEDS: Ketorolac 10 MG Tab PO PRN ×3 (00:20→16:49)
[2021-09-23] MEDS: Ondansetron 4 MG Tab.DIS PO PRN ×3 (00:20→16:49)
[2021-09-23] MEDS: diphenhydrAMINE 25 MG Cap PO PRN ×2 (04:56→16:49)
[2021-09-23] MEDS: Levothyroxine 125 MCG Tab PO SCH (06:15)
[2021-09-23] MEDS: Apixaban 5 MG Tab PO SCH ×2 (08:11→19:20)
[2021-09-23] MEDS: Calcitriol 0.25 MCG Cap PO SCH (08:11)
[2021-09-23] MEDS: Oxybutynin 5 MG Tab.ER PO SCH (08:11)
[2021-09-23] MEDS: Pregabalin 100 MG Cap PO SCH ×3 (08:11→19:20)
[2021-09-23] MEDS: Spironolactone 25 MG Tab PO SCH (08:12)
[2021-09-23] MEDS: DULoxetine 30 MG Cap PO SCH (08:12)
[2021-09-23] MEDS: Bumetanide 1 MG Tab PO SCH (08:12)
[2021-09-23] MEDS: Calcium Carbonate/Vitamin D3 1250 MG-5 MCG Tab PO SCH (08:12)
[2021-09-23] MEDS: Loratadine 10 MG Tab PO SCH (08:12)
[2021-09-23] MEDS: Cyanocobalamin (Vitamin B12) 1,000 MCG Tab PO SCH (08:12)
[2021-09-23] MEDS: Pantoprazole 40 MG Tab.CR PO SCH (08:12)
[2021-09-23] MEDS: EMTRICITABINE TENOFOVIR PO SCH (08:13)
[2021-09-23] MEDS: LURASIDONE HCL 40 MG PO SCH (08:14)
[2021-09-23] MEDS: EFAVIRENZ 600 MG PO SCH (08:16)
[2021-09-23] MEDS: Cyclobenzaprine 10 MG Tab PO PRN ×2 (10:19→22:25)
[2021-09-23] MEDS: Levofloxacin 500 MG Tab PO SCH (12:49)
[2021-09-23] MEDS: LORazepam 0.5 MG Tab PO PRN (18:09)
[2021-09-23] MEDS: rOPINIRole 0.25 MG Tab PO SCH (19:20)
[2021-09-23] MEDS: Montelukast 10 MG Tab PO SCH (19:20)
[2021-09-24] MEDS: Ondansetron 4 MG Tab.DIS PO PRN ×3 (01:44→20:38)
[2021-09-24] MEDS: diphenhydrAMINE 25 MG Cap PO PRN ×3 (01:44→20:38)
[2021-09-24] MEDS: Ketorolac 10 MG Tab PO PRN ×3 (01:45→20:38)
[2021-09-24] MEDS: Calcitriol 0.25 MCG Cap PO SCH (08:12)
[2021-09-24] MEDS: Bumetanide 1 MG Tab PO SCH (08:12)
[2021-09-24] MEDS: DULoxetine 30 MG Cap PO SCH (08:12)
[2021-09-24] MEDS: Loratadine 10 MG Tab PO SCH (08:12)
[2021-09-24] MEDS: Spironolactone 25 MG Tab PO SCH (08:12)
[2021-09-24] MEDS: Cyanocobalamin (Vitamin B12) 1,000 MCG Tab PO SCH (08:12)
[2021-09-24] MEDS: Pantoprazole 40 MG Tab.CR PO SCH (08:12)
[2021-09-24] MEDS: Calcium Carbonate/Vitamin D3 1250 MG-5 MCG Tab PO SCH (08:12)
[2021-09-24] MEDS: Oxybutynin 5 MG Tab.ER PO SCH (08:13)
[2021-09-24] MEDS: Pregabalin 100 MG Cap PO SCH ×3 (08:13→20:38)
[2021-09-24] MEDS: Apixaban 5 MG Tab PO SCH ×2 (08:13→20:38)
[2021-09-24] MEDS: EMTRICITABINE TENOFOVIR PO SCH (08:13)
[2021-09-24] MEDS: Levothyroxine 125 MCG Tab PO SCH (08:13)
[2021-09-24] MEDS: EFAVIRENZ 600 MG PO SCH (08:14)
[2021-09-24] MEDS: LURASIDONE HCL 40 MG PO SCH (08:14)
[2021-09-24] MEDS: Levofloxacin 500 MG Tab PO SCH (12:02)
[2021-09-24] MEDS: LORazepam 0.5 MG Tab PO PRN (13:40)
[2021-09-24] MEDS: rOPINIRole 0.25 MG Tab PO SCH (20:37)
[2021-09-24] MEDS: Montelukast 10 MG Tab PO SCH (20:38)
[2021-09-24] MEDS: Cyclobenzaprine 10 MG Tab PO PRN (23:13)
[2021-09-25] MEDS: LORazepam 0.5 MG Tab PO PRN ×2 (02:20→15:03)
[2021-09-25] MEDS: diphenhydrAMINE 25 MG Cap PO PRN ×2 (03:20→12:43)
[2021-09-25] MEDS: Ketorolac 10 MG Tab PO PRN ×2 (03:20→12:43)
[2021-09-25] MEDS: Ondansetron 4 MG Tab.DIS PO PRN ×3 (03:20→19:15)
[2021-09-25] MEDS: Levothyroxine 125 MCG Tab PO SCH (06:30)
[2021-09-25] MEDS: Oxybutynin 5 MG Tab.ER PO SCH (07:29)
[2021-09-25] MEDS: Calcitriol 0.25 MCG Cap PO SCH (07:29)
[2021-09-25] MEDS: Pregabalin 100 MG Cap PO SCH ×3 (07:29→19:47)
[2021-09-25] MEDS: DULoxetine 30 MG Cap PO SCH (07:30)
[2021-09-25] MEDS: Calcium Carbonate/Vitamin D3 1250 MG-5 MCG Tab PO SCH (07:30)
[2021-09-25] MEDS: Bumetanide 1 MG Tab PO SCH (07:30)
[2021-09-25] MEDS: Loratadine 10 MG Tab PO SCH (07:30)
[2021-09-25] MEDS: Cyanocobalamin (Vitamin B12) 1,000 MCG Tab PO SCH (07:30)
[2021-09-25] MEDS: Apixaban 5 MG Tab PO SCH ×2 (07:30→19:48)
[2021-09-25] MEDS: Pantoprazole 40 MG Tab.CR PO SCH (07:30)
[2021-09-25] MEDS: Spironolactone 25 MG Tab PO SCH (07:30)
[2021-09-25] MEDS: LURASIDONE HCL 40 MG PO SCH (07:33)
[2021-09-25] MEDS: EFAVIRENZ 600 MG PO SCH (07:35)
[2021-09-25] MEDS: EMTRICITABINE TENOFOVIR PO SCH (07:35)
[2021-09-25] MEDS: Levofloxacin 500 MG Tab PO SCH (11:30)
[2021-09-25] MEDS: Clindamycin HCl 150 MG Cap PO SCH ×2 (11:30→19:47)
--- NOTE | 2021-09-25 12:53 | PN ---
DATE: 09/25/2021 S: Mrs. Parks is seen at the request of staff, as she has a left gluteal ulcer. She came in with this. It has gotten a little bit deeper and staff feel like it is starting to have some foul drainage. O: SKIN: Exam shows a 3 cm stage II pressure sore in the left ischial region. Culture was obtained. There is some foul smelling drainage. Minimal surrounding erythema. ASSESSMENT: SACRAL DECUBITUS ULCER. P: We are going to start her on some Cleocin orally. We will get a culture. We will have PT give recommendations for wound cares. Encouraged the patient to get up out of bed frequently. AGUSTÍN/JAMILAH /[id number]
[2021-09-25] MEDS: Cyclobenzaprine 10 MG Tab PO PRN (19:15)
[2021-09-25] MEDS: rOPINIRole 0.25 MG Tab PO SCH (19:48)
[2021-09-25] MEDS: Montelukast 10 MG Tab PO SCH (19:48)
[2021-09-26] MEDS: diphenhydrAMINE 25 MG Cap PO PRN ×2 (02:17→17:10)
[2021-09-26] MEDS: Ketorolac 10 MG Tab PO PRN ×2 (02:17→17:10)
[2021-09-26] MEDS: Ondansetron 4 MG Tab.DIS PO PRN ×2 (02:17→17:10)
[2021-09-26] MEDS: Clindamycin HCl 150 MG Cap PO SCH ×3 (04:09→20:18)
[2021-09-26] MEDS: Levothyroxine 125 MCG Tab PO SCH (06:00)
[2021-09-26] MEDS: Calcium Carbonate/Vitamin D3 1250 MG-5 MCG Tab PO SCH (07:55)
[2021-09-26] MEDS: Bumetanide 1 MG Tab PO SCH (07:55)
[2021-09-26] MEDS: Apixaban 5 MG Tab PO SCH ×2 (07:55→20:18)
[2021-09-26] MEDS: DULoxetine 30 MG Cap PO SCH (07:55)
[2021-09-26] MEDS: Calcitriol 0.25 MCG Cap PO SCH (07:55)
[2021-09-26] MEDS: Loratadine 10 MG Tab PO SCH (07:55)
[2021-09-26] MEDS: EFAVIRENZ 600 MG PO SCH (07:56)
[2021-09-26] MEDS: Spironolactone 25 MG Tab PO SCH (07:56)
[2021-09-26] MEDS: Cyanocobalamin (Vitamin B12) 1,000 MCG Tab PO SCH (07:56)
[2021-09-26] MEDS: Oxybutynin 5 MG Tab.ER PO SCH (07:56)
[2021-09-26] MEDS: Pantoprazole 40 MG Tab.CR PO SCH (07:56)
[2021-09-26] MEDS: EMTRICITABINE TENOFOVIR PO SCH (07:57)
[2021-09-26] MEDS: LURASIDONE HCL 40 MG PO SCH (07:58)
[2021-09-26] MEDS: Pregabalin 100 MG Cap PO SCH ×3 (07:58→20:18)
[2021-09-26] MEDS: Levofloxacin 500 MG Tab PO SCH (11:49)
[2021-09-26] MEDS: Montelukast 10 MG Tab PO SCH (20:19)
[2021-09-26] MEDS: rOPINIRole 0.25 MG Tab PO SCH (20:19)
[2021-09-26] MEDS: Cyclobenzaprine 10 MG Tab PO PRN (22:57)
[2021-09-27] MEDS: Ondansetron 4 MG Tab.DIS PO PRN ×2 (02:44→10:08)
[2021-09-27] MEDS: LORazepam 0.5 MG Tab PO PRN (02:44)
[2021-09-27] MEDS: Ketorolac 10 MG Tab PO PRN ×2 (02:44→10:10)
[2021-09-27] MEDS: diphenhydrAMINE 25 MG Cap PO PRN ×2 (02:44→10:08)
[2021-09-27] MEDS: Clindamycin HCl 150 MG Cap PO SCH ×2 (04:37→11:44)
[2021-09-27] MEDS: Levothyroxine 125 MCG Tab PO SCH (06:08)
[2021-09-27] MEDS: Loratadine 10 MG Tab PO SCH (07:33)
[2021-09-27] MEDS: Pantoprazole 40 MG Tab.CR PO SCH (07:33)
[2021-09-27] MEDS: Pregabalin 100 MG Cap PO SCH ×2 (07:33→13:17)
[2021-09-27] MEDS: Calcitriol 0.25 MCG Cap PO SCH (07:33)
[2021-09-27] MEDS: Oxybutynin 5 MG Tab.ER PO SCH (07:33)
[2021-09-27] MEDS: Cyanocobalamin (Vitamin B12) 1,000 MCG Tab PO SCH (07:34)
[2021-09-27] MEDS: Apixaban 5 MG Tab PO SCH (07:34)
[2021-09-27] MEDS: Spironolactone 25 MG Tab PO SCH (07:34)
[2021-09-27] MEDS: DULoxetine 30 MG Cap PO SCH (07:34)
[2021-09-27] MEDS: Bumetanide 1 MG Tab PO SCH (07:34)
[2021-09-27] MEDS: Calcium Carbonate/Vitamin D3 1250 MG-5 MCG Tab PO SCH (07:34)
[2021-09-27] MEDS: EMTRICITABINE TENOFOVIR PO SCH (07:37)
[2021-09-27] MEDS: EFAVIRENZ 600 MG PO SCH (07:37)
[2021-09-27] MEDS: LURASIDONE HCL 40 MG PO SCH (07:38)
[2021-09-27] MEDS: Levofloxacin 500 MG Tab PO SCH (11:44)
--- NOTE | 2021-09-28 13:15 | PCM.DCSUM1 ---
Discharge Summary - Hospital Course Diagnosis: Stroke: No Modified Ananya Scale: No Symptoms at All Modified Ananya Scale Score: 0 - Discharge Data Discharge Date: 09/27/21 Discharge Disposition: Home, W Home Health Agency 06 Condition: Fair - Referral to Home Health Date of Face to Face Encounter: 09/27/21 Reason for Homebound Status: unable to drive due to weakness Primary Care Physician: Dylan Alvarado MD Skilled Need: Nursing to monitor gluteal wound, blood pressure, medication compliance. Physical therapy for strengthening. Occupational therapy for ADLs. - Discharge Diagnosis/Problem(s) (1) VALERIO (acute kidney injury) SNOMED Code(s): 21786447, [id number] ICD Code: N17.9 - ACUTE KIDNEY FAILURE, UNSPECIFIED Status: Resolved (2) CHF, Congestive heart failure SNOMED Code(s): 13695096 ICD Code: I50.9 - HEART FAILURE, UNSPECIFIED Status: Chronic (3) HIV (human immunodeficiency virus infection) SNOMED Code(s): 45360318 ICD Code: B20 - HUMAN IMMUNODEFICIENCY VIRUS [HIV] DISEASE Status: Chronic (4) Opiate overdose SNOMED Code(s): 216812519 ICD Code: T40.601A - POISONING BY UNSP NARCOTICS, ACCIDENTAL, INIT Status: Resolved Qualifiers: Encounter type: sequela - Patient Summary/Data Consults: Consultations 09/12/21 15:01 Consult to Physical Therapy [PT Evaluation and Treatment] [CONS] Routine - Discharge Plan *PRESCRIPTION DRUG MONITORING PROGRAM REVIEWED*: No *COPY OF PRESCRIPTION DRUG MONITORING REPORT IN PATIENT BELKIS: No Prescriptions/Med Rec: clindamycin HCL [Cleocin] 300 mg PO Q8H #32 cap Oxybutynin [Oxybutynin ER] 15 mg PO DAILY #30 tab.er Vitamin D3 1.25mg Cap Ptom 0 cap PO MoWeFr@0800 #0 Home Medications: Home Meds Levocetirizine Dihydrochloride [Xyzal] 5 mg PO DAILY PRN 12/20/19 [History] Montelukast Sodium [Singulair] 10 mg PO BEDTIME 12/20/19 [History] Pregabalin [Lyrica] 400 mg PO BID 12/20/19 [History] Rivaroxaban [Xarelto] 20 mg PO QAM 12/20/19 [History] busPIRone [Buspar] 20 mg PO TID 12/20/19 [History] Albuterol Sulfate [Albuterol Sulfate HFA] 1 - 2 puff INH ASDIRECTED PRN 09/12/21 [History] Bumetanide 1 mg PO DAILY 09/12/21 [History] Calcium Citrate 950 mg PO DAILY 09/12/21 [History] Cholecalciferol (Vitamin D3) [Vitamin D3] 1.25 mg PO MOWEFR 09/12/21 [History] Cyanocobalamin (Vitamin B-12) [B-12] 500 mcg PO DAILY 09/12/21 [History] Cyclobenzaprine [Flexeril] 10 mg PO TID PRN 09/12/21 [History] DULoxetine [Cymbalta] 30 mg PO DAILY 09/12/21 [History] DULoxetine [Cymbalta] 60 mg PO DAILY 09/12/21 [History] Emtricitabine/Tenofovir [Truvada 200 mg-300 mg Tablet] 1 tab PO DAILY 09/12/21 [History] Erenumab-Aooe [Aimovig Autoinjector] 140 mg SQ ASDIRECTED 09/12/21 [History] LORazepam [Ativan] 1 mg PO BID 09/12/21 [History] Levothyroxine 125 mcg PO DAILY 09/12/21 [History] Lurasidone HCl [Latuda] 40 mg PO DAILY 09/12/21 [History] Morphine Sulfate 15 mg PO Q6H PRN 09/12/21 [History] Morphine [MS Contin] 45 mg PO Q12H PRN 09/12/21 [History] Naloxone HCl [Narcan] 4 mg NS ASDIRECTED PRN 09/12/21 [History] Nitroglycerin 0.4 mg SL ASDIRECTED PRN 09/12/21 [History] Nystatin [Nystatin Crm] 1 gm TOP TID PRN 09/12/21 [History] Pantoprazole 40 mg PO DAILY 09/12/21 [History] Pregabalin 300 mg PO BEDTIME 09/12/21 [History] Spironolactone [Aldactone] 50 mg PO DAILY 09/12/21 [History] Triamcinolone Acetonide [Triamcinolone Acetonide 0.1% Crm] 1 applic TOP TID PRN 09/12/21 [History] Ubrogepant [Ubrelvy] 100 mg PO BID PRN 09/12/21 [History] calcitrioL [Calcitriol] 0.5 mcg PO DAILY 09/12/21 [History] cycloSPORINE [Restasis Multidose] 1 drop EYEBOTH BID 09/12/21 [History] medroxyPROGESTERone [Provera] 10 mg PO DAILY 09/12/21 [History] tiZANidine [Zanaflex] 4 mg PO TID PRN 09/12/21 [History] Efavirenz 600 mg PO DAILY 09/13/21 [History] Oxybutynin Chloride [Oxybutynin Chloride ER] 15 mg PO DAILY 09/13/21 [History] Oxybutynin [Oxybutynin ER] 15 mg PO DAILY #30 tab.er 09/27/21 [Rx] Vitamin D3 1.25mg Cap Ptom 0 cap PO MoWeFr@0800 #0 09/27/21 [Rx] clindamycin HCL [Cleocin] 300 mg PO Q8H #32 cap 09/27/21 [Rx] Referrals: Taran Bundy, RAS [Physician [employer] Operator] - (Hospital follow up in 2 weeks with Ant Bundy) - Patient Data Vitals - Most Recent: Last Vital Signs Temp 97.5 F 09/27/21 08:00 Pulse 74 09/27/21 08:00 Resp 16 09/27/21 08:00 BP 108/49 L 09/27/21 08:00 Pulse Ox 94 L 09/27/21 08:00 Weight - Most Recent: 393 lb 1.6 oz RAHUL Results - Last 24 hrs: Microbiology 09/26/21 10:44 Wound Culture - Final Buttock, Left Enterococcus Faecalis Med Orders - Current: Current Medications Discontinued Medications Albuterol (Albuterol 8 Gm Inhaler) 0 gm INH ASDIRECTED PRN PRN Reason: Shortness of Breath Last Admin: 09/17/21 08:55 Dose: 2 puff Documented by: Albuterol/Ipratropium (Albuterol/Ipratropium 3.0-0.5 Mg/3 Ml Neb Soln) 3 ml NEB Q6H PRN PRN Reason: Dyspnea Last Admin: 09/17/21 19:50 Dose: 3 ml Documented by: Apixaban (Apixaban 5 Mg Tab) 5 mg PO BID MINDI Last Admin: 09/27/21 07:34 Dose: 5 mg Documented by: Artificial Tears (Polyvinyl Alcohol 1.4% Ophth Soln 15 Ml Bottle) 0 ml EYEBOTH TID PRN PRN Reason: Dry Eyes Bumetanide (Bumetanide 1 Mg Tab) 1 mg PO DAILY [facility] Last Admin: 09/27/21 07:34 Dose: 1 mg Documented by: Buspirone HCl (Buspirone 5 Mg Tab) 20 mg PO TID [facility] Last Admin: 09/15/21 07:04 Dose: 20 mg Documented by: Calcitriol (Calcitriol 0.25 Mcg Cap) 0.5 mcg PO DAILY [facility] Last Admin: 09/27/21 07:33 Dose: 0.5 mcg Documented by: Calcium Carbonate (Calcium Carbonate/Vitamin D3 1250 Mg-5 Mcg Tab) 1 tab PO DAILY [facility] Last Admin: 09/27/21 07:34 Dose: 1 tab Documented by: Cholecalciferol (Cholecalciferol (Vitamin D3) 25 Mcg Tab) 1,250 mcg PO ASDIRECTED [facility] Clindamycin HCl (Clindamycin Hcl 150 Mg Cap) 300 mg PO Q8H [facility] Last Admin: 09/27/21 11:44 Dose: 300 mg Documented by: Cyanocobalamin (Cyanocobalamin (Vitamin B12) 1,000 Mcg Tab) 500 mcg PO DAILY [facility] Last Admin: 09/27/21 07:34 Dose: 500 mcg Documented by: Cyclobenzaprine HCl (Cyclobenzaprine 10 Mg Tab) 10 mg PO TID PRN PRN Reason: Muscle Spasm - Painful Last Admin: 09/26/21 22:57 Dose: 10 mg Documented by: Diphenhydramine HCl (Diphenhydramine 50 Mg/Ml Sdv) 50 mg IVPUSH Q8H PRN PRN Reason: Headache Last Admin: 09/22/21 06:51 Dose: 50 mg Documented by: Diphenhydramine HCl (Diphenhydramine 25 Mg Cap) 50 mg PO Q6H PRN PRN Reason: Headache Last Admin: 09/27/21 10:08 Dose: 50 mg Documented by: Duloxetine HCl (Duloxetine 30 Mg Cap) 90 mg PO DAILY [facility] Last Admin: 09/27/21 07:34 Dose: 90 mg Documented by: Levofloxacin/Dextrose 750 mg/ (Premix) 150 mls @ 100 mls/hr IV Q48H [facility] Last Admin: 09/19/21 04:33 Dose: Not Given Documented by: Sodium Chloride (Normal Saline) 1,000 mls @ 100 mls/hr IV ASDIRECTED [facility] Last Admin: 09/17/21 03:58 Dose: 100 mls/hr Documented by: Sodium Chloride (Normal Saline) 1,000 mls @ 150 mls/hr IV ASDIRECTED [facility] Stop: 09/18/21 18:39 Last Admin: 09/18/21 13:06 Dose: 150 mls/hr Documented by: Levofloxacin/Dextrose 750 mg/ (Premix) 150 mls @ 100 mls/hr IV Q48H [facility] Last Admin: 09/21/21 11:07 Dose: Not Given Documented by: Influenza Virus Vaccine (Flu Vacc [id number](6mos Up)/Pf 60 Mcg/0.5 Ml Syringe) 60 mcg IM .ONCE ONE Stop: 09/25/21 13:46 Last Admin: 09/25/21 13:40 Dose: 60 mcg Documented by: Ketorolac Tromethamine (Ketorolac 30 Mg/Ml Sdv) 30 mg IVPUSH ONETIME ONE Stop: 09/20/21 16:25 Last Admin: 09/20/21 16:32 Dose: 30 mg Documented by: Ketorolac Tromethamine (Ketorolac 10 Mg Tab) 10 mg PO Q6H PRN PRN Reason: Headache Stop: 10/02/21 16:47 Last Admin: 09/27/21 10:10 Dose: 10 mg Documented by: Levofloxacin (Levofloxacin 500 Mg Tab) 500 mg PO Q24H [facility] Last Admin: 09/27/21 11:44 Dose: 500 mg Documented by: Levothyroxine Sodium (Levothyroxine 125 Mcg Tab) 125 mcg PO ACBREAKFAST [facility] Last Admin: 09/27/21 06:08 Dose: 125 mcg Documented by: Loratadine (Loratadine 10 Mg Tab) 10 mg PO DAILY PRN PRN Reason: Allergies Loratadine (Loratadine 10 Mg Tab) 10 mg PO DAILY [facility] Last Admin: 09/27/21 07:33 Dose: 10 mg Documented by: Lorazepam (Lorazepam 0.5 Mg Tab) 1 mg PO BID [facility] Last Admin: 09/15/21 07:08 Dose: 1 mg Documented by: Lorazepam (Lorazepam 0.5 Mg Tab) 1 mg PO BID PRN PRN Reason: Anxiety Last Admin: 09/27/21 02:44 Dose: 1 mg Documented by: Medroxyprogesterone Acetate (Medroxyprogesterone 2.5 Mg Tab) 10 mg PO DAILY [facility] Stop: 09/24/21 10:00 Last Admin: 09/24/21 08:12 Dose: 10 mg Documented by: Montelukast Sodium (Montelukast 10 Mg Tab) 10 mg PO BEDTIME [facility] Last Admin: 09/26/21 20:19 Dose: 10 mg Documented by: Morphine Sulfate (Morphine 15 Mg Tab.Er) 45 mg PO Q12H PRN PRN Reason: Pain Morphine Sulfate (Morphine 15 Mg Tab) 15 mg PO Q6H PRN PRN Reason: Pain Naloxone HCl (Naloxone 2 Mg/2 Ml Syringe) 1 mg IVPUSH ASDIRECTED PRN PRN Reason: Respiratory Depression Nitroglycerin (Nitroglycerin 0.4 Mg Tab.Sl) 0.4 mg SL ASDIRECTED PRN PRN Reason: Chest Pain Non-Formulary Medication (Duloxetine [Cymbalta]) 1 cap PO DAILY [facility] Non-Formulary Medication (Efavirenz/Lamivu/Tenofov Disop [Symfi 600-300-300 Mg Tablet]) 1 each PO DAILY [facility] Last Admin: 09/13/21 09:22 Dose: Not Given Documented by: Non-Formulary Medication (Emtricitabine/Tenofovir) 1 tab PO DAILY [facility] Last Admin: 09/13/21 09:22 Dose: Not Given Documented by: Non-Formulary Medication (Erenumab-Aooe [Aimovig Autoinjector]) 140 mg SQ ASDIRECTED [facility] Lurasidone Hcl [ Latuda] 40 Mg Tablet Ptom 0 tab PO DAILY [facility] Last Admin: 09/27/21 07:38 Dose: 0.5 tab Documented by: Non-Formulary Medication (Naloxone Hcl [Narcan]) 4 mg NS ASDIRECTED PRN PRN Reason: Other Non-Formulary Medication (Ubrogepant [Ubrelvy]) 1 tab PO BID PRN PRN Reason: Headache Emtricitabine- Tenofovir (Descovy) 200-25 Mg Tab Ptom 0 tab PO DAILY [facility] Last Admin: 09/27/21 07:37 Dose: 1 tab Documented by: Efavirenz (Sustiva) (600mg Tab Ptom) 0 mg PO DAILY [facility] Last Admin: 09/27/21 07:37 Dose: 600 mg Documented by: Vitamin D3 1.25mg (Cap Ptom) 0 cap PO DAILY [facility] Last Admin: 09/13/21 09:13 Dose: 1 cap Documented by: Vitamin D3 1.25mg (Cap Ptom) 0 cap PO MoWeFr@0800 [facility] Last Admin: 09/27/21 07:38 Dose: 1 cap Documented by: Nystatin (Nystatin Crm 30 Gm Tube) 0 gm TOP TID PRN PRN Reason: Rash Last Admin: 09/13/21 04:20 Dose: 1 applic Documented by: Ondansetron HCl (Ondansetron 4 Mg Tab.Dis) 4 mg PO Q6H PRN PRN Reason: Nausea/Vomiting Last Admin: 09/27/21 10:08 Dose: 4 mg Documented by: Oxybutynin Chloride (Oxybutynin 5 Mg Tab.Er) 15 mg PO DAILY [facility] Last Admin: 09/27/21 07:33 Dose: 15 mg Documented by: Pantoprazole Sodium (Pantoprazole 40 Mg Tab.Cr) 40 mg PO DAILY [facility] Last Admin: 09/27/21 07:33 Dose: 40 mg Documented by: Pregabalin (Pregabalin 100 Mg Cap) 400 mg PO DAILY@0800,1730 [facility] Last Admin: 09/13/21 07:25 Dose: 400 mg Documented by: Pregabalin (Pregabalin 100 Mg Cap) 300 mg PO BEDTIME [facility] Last Admin: 09/26/21 20:18 Dose: 300 mg Documented by: Pregabalin (Pregabalin 100 Mg Cap) 400 mg PO DAILY@0800,1400 [facility] Last Admin: 09/27/21 13:17 Dose: 400 mg Documented by: Ropinirole HCl (Ropinirole 0.25 Mg Tab) 0.125 mg PO BEDTIME [facility] Last Admin: 09/26/21 20:19 Dose: 0.125 mg Documented by: Spironolactone (Spironolactone 25 Mg Tab) 50 mg PO DAILY [facility] Last Admin: 09/27/21 07:34 Dose: 50 mg Documented by: Sumatriptan Succinate (Sumatriptan 25 Mg Tab) 100 mg PO ONETIME ONE Stop: 09/21/21 16:50 Last Admin: 09/21/21 17:25 Dose: 100 mg Documented by: Tizanidine HCl (Tizanidine 4 Mg Tab) 4 mg PO TID PRN PRN Reason: Muscle Spasm - Painful Triamcinolone Acetonide (Triamcinolone Acetonide 0.1% Crm 15 Gm Tube) 0 gm TOP TID PRN PRN Reason: Rash
== END 2021-09-27 16:40 | disposition home health service (06) | DRG 977 ==
LOC: UNDOADMIN 12:10 → CC.MS 12:10
PROVIDERS: ADMIT Family Medicine; ATTEND Family Medicine
DX: R53.81 Other malaise (principal); B20 Human immunodeficiency virus [HIV] disease; N17.9 Acute kidney failure, unspecified; Z68.45 Body mass index [BMI] 70 or greater, adult; F31.30 Bipolar disorder, current episode depressed, mild or moderate severity, unspecified; T40.601 Poisoning by unspecified narcotics, accidental (unintentional); Z20.822 Contact with and (suspected) exposure to COVID-19; N18.30 Chronic kidney disease, stage 3 unspecified; K21.9 Gastro-esophageal reflux disease without esophagitis; E03.9 Hypothyroidism, unspecified; E66.01 Morbid (severe) obesity due to excess calories; F31.9 Bipolar disorder, unspecified; G47.33 Obstructive sleep apnea (adult) (pediatric); Z96.652 Presence of left artificial knee joint; L89.152 Pressure ulcer of sacral region, stage 2; Z90.49 Acquired absence of other specified parts of digestive tract; Z91.030 Bee allergy status; Z88.5 Allergy status to narcotic agent; Z87.891 Personal history of nicotine dependence; Z91.040 Latex allergy status; Z79.899 Other long term (current) drug therapy; Z79.890 Hormone replacement therapy
CPT/HCPCS: 36415; 71045; 80048; 80053; 82550; 83605; 83615; 84484; 85025; 85379; 86140; 87070; 87077; 87186; 87430; 90686; 93005; 94640; 97110-GP; 97161-GP; 97530-GP; A9270-GY; G0008; J1200; J1885; J1956; J7030; J7620-GY; U0002

== ENCOUNTER 2021-10-06 13:22 | Inpatient (IN) | payer MEDICARE, MEDICAID ==
[2021-10-06] MEDS ORDERED: Sodium Chloride 0.9% 10 ML Syringe FLUSH PRN (13:55)
[2021-10-06] MEDS: Ampicillin 1 GM Vial IVPUSH SCH ×2 (16:52→20:40)
--- NOTE | 2021-10-06 18:11 | PCM.HP.2 ---
H&P History of Present Illness - General Date of Service: 10/06/21 Admit Problem/Dx: Admission Diagnosis/Problem Admission Diagnosis/Problem Decubitus ulcer of buttock Source of Information: Patient History Limitations: Reports: No Limitations - History of Present Illness Initial Comments - Free Text/Narative: Jessica is a 51 yo female who presents to the hospital for direct admit to swing bed care. She was recently discharged from swing bed care secondary to recent overdose, pneumonia and a decubitus ulcer. Upon initial discharge, wound culture sensitivities were not back. Patient was sent home on Clindamycin. Patient was seen in the clinic yesterday and after reviewing culture and sensitivity report it did not show sensitivity to Clindamycin. Organism grew out enterococcus faecalis. Patient was given 1.2 million units of Bicillin LA. We did attempt to get patient into wound care in [place] this morning which they did not have any openings. - Related Data Allergies/Adverse Reactions: Allergies Allergy/AdvReac Type Severity Reaction Status Date / Time latex Allergy Rash Verified 10/06/21 16:59 tramadol Allergy Other Verified 10/06/21 16:59 bee stings Allergy Anaphylactic Uncoded 10/06/21 16:59 Shock coconut Allergy Anaphylactic Uncoded 10/06/21 16:59 Shock wool Allergy Itching Uncoded 10/06/21 16:59 Home Medications: Home Meds Levocetirizine Dihydrochloride [Xyzal] 5 mg PO DAILY PRN 12/20/19 [History] Montelukast Sodium [Singulair] 10 mg PO BEDTIME 12/20/19 [History] Pregabalin [Lyrica] 400 mg PO BID 12/20/19 [History] Rivaroxaban [Xarelto] 20 mg PO QAM 12/20/19 [History] busPIRone [Buspar] 20 mg PO TID 12/20/19 [History] Albuterol Sulfate [Albuterol Sulfate HFA] 1 - 2 puff INH ASDIRECTED PRN 09/12/21 [History] Bumetanide 1 mg PO DAILY 09/12/21 [History] Calcium Citrate 950 mg PO DAILY 09/12/21 [History] Cholecalciferol (Vitamin D3) [Vitamin D3] 1.25 mg PO MOWEFR 09/12/21 [History] Cyanocobalamin (Vitamin B-12) [B-12] 500 mcg PO DAILY 09/12/21 [History] Cyclobenzaprine [Flexeril] 10 mg PO TID PRN 09/12/21 [History] DULoxetine [Cymbalta] 30 mg PO DAILY 09/12/21 [History] DULoxetine [Cymbalta] 60 mg PO DAILY 09/12/21 [History] Emtricitabine/Tenofovir [Truvada 200 mg-300 mg Tablet] 1 tab PO DAILY 09/12/21 [History] Erenumab-Aooe [Aimovig Autoinjector] 140 mg SQ ASDIRECTED 09/12/21 [History] LORazepam [Ativan] 1 mg PO BID 09/12/21 [History] Levothyroxine 125 mcg PO DAILY 09/12/21 [History] Lurasidone HCl [Latuda] 40 mg PO DAILY 09/12/21 [History] Morphine Sulfate 15 mg PO Q6H PRN 09/12/21 [History] Morphine [MS Contin] 45 mg PO Q12H PRN 09/12/21 [History] Naloxone HCl [Narcan] 4 mg NS ASDIRECTED PRN 09/12/21 [History] Nitroglycerin 0.4 mg SL ASDIRECTED PRN 09/12/21 [History] Nystatin [Nystatin Crm] 1 gm TOP TID PRN 09/12/21 [History] Pantoprazole 40 mg PO DAILY 09/12/21 [History] Pregabalin 300 mg PO BEDTIME 09/12/21 [History] Spironolactone [Aldactone] 50 mg PO DAILY 09/12/21 [History] Triamcinolone Acetonide [Triamcinolone Acetonide 0.1% Crm] 1 applic TOP TID PRN 09/12/21 [History] Ubrogepant [Ubrelvy] 100 mg PO BID PRN 09/12/21 [History] calcitrioL [Calcitriol] 0.5 mcg PO DAILY 09/12/21 [History] cycloSPORINE [Restasis Multidose] 1 drop EYEBOTH BID 09/12/21 [History] medroxyPROGESTERone [Provera] 10 mg PO DAILY 09/12/21 [History] tiZANidine [Zanaflex] 4 mg PO TID PRN 09/12/21 [History] Efavirenz 600 mg PO DAILY 09/13/21 [History] Oxybutynin Chloride [Oxybutynin Chloride ER] 15 mg PO DAILY 09/13/21 [History] Oxybutynin [Oxybutynin ER] 15 mg PO DAILY #30 tab.er 09/27/21 [Rx] Vitamin D3 1.25mg Cap Ptom 0 cap PO MoWeFr@0800 #0 09/27/21 [Rx] Past Medical History HEENT History: Reports: Other (See Below) Other HEENT History: legally blind Cardiovascular History: Reports: Heart Failure, Hypertension, SOB on Exertion Respiratory History: Reports: PE, SOB Gastrointestinal History: Reports: Chronic Diarrhea, GERD Genitourinary History: Reports: Urinary Incontinence, Other (See Below) Other Genitourinary History: stage 3 kidney failure Other OB/BYN History: tubal ligation Musculoskeletal History: Reports: Back Pain, Chronic, Fracture, Osteoarthritis Neurological History: Reports: Migraines Psychiatric History: Reports: Anxiety, Bipolar, Depression, Panic Attack Endocrine/Metabolic History: Reports: Hyperthyroidism, Vitamin D Deficiency Hematologic History: Reports: Anticoagulation Therapy Other Hematologic History: on xarelto for history of PE Immunologic History: Reports: HIV - Infectious Disease History Infectious Disease History: Reports: HIV-Human Immunodeficiency Virus - Past Surgical History Respiratory Surgical History: Reports: None GI Surgical History: Reports: Bariatric Procedure, Cholecystectomy, Other (See Below) Other GI Surgeries/Procedures: panniculectomy 2018 (19 lbs skin removed) Female Surgical History: Reports: Tubal Ligation Musculoskeletal Surgical History: Reports: Arthroscopic Knee, Knee Replacement, Other (See Below) Other Musculoskeletal Surgeries/Procedures:: left knee replacement X3; fracture below left knee, ruptured quadricep tendon repair, ruptured thigh. muscle, right knee surgery Social & Family History - Family History Family Medical History: No Pertinent Family History - Caffeine Use Caffeine Use: Reports: None - Living Situation & Occupation Living situation: Reports: (States her dided about 8 years ago in her arms. Patient states she has had a lot of in her life over the last several years and has not dealt with it. She currently lives in [place] with a friend. Patient having a harder time taking care of her self and reports frequent falls in), Other (Patient currently lives in [place] with a friend. Patient having a harder time taking care of her self and reports frequent falls in the last month that have resulted in the patient being seen in the emergency room.) Occupation: Disabled H&P Review of Systems - Review of Systems: Review Of Systems: See Below General: Reports: Weakness, Fatigue. Denies: Fever, Decreased Appetite HEENT: Reports: No Symptoms Pulmonary: Reports: No Symptoms Cardiovascular: Reports: No Symptoms Gastrointestinal: Reports: No Symptoms Genitourinary: Reports: No Symptoms Musculoskeletal: Reports: Back Pain (chronic) Skin: Reports: Wound (pain and discomfort to ulcer) Exam - Exam Exam: See Below - Vital Signs Vital Signs: Last Vital Signs Temp 97.4 F 10/06/21 14:15 Pulse 69 10/06/21 14:15 Resp 20 10/06/21 14:15 BP 120/45 L 10/06/21 14:15 Pulse Ox 96 10/06/21 14:15 Weight: 411 lb 14.4 oz - Exam General: Alert, Cooperative, Other (morbid obesity). No: Mild Distress, Moderate Distress, Severe Distress HEENT: Hearing Intact, Nares Patent Neck: Supple, Trachea Midline Lungs: Clear to Auscultation, Normal Respiratory Effort Cardiovascular: Regular Rate, Regular Rhythm GI/Abdominal Exam: Soft, Non-Tender, No Distention Extremities: Non-Tender, No Pedal Edema Skin: Decubitis (3cm open decubitus ulcer with foul odor to left inner buttocks. ) Neuro Extensive - Mental Status: Alert, Oriented x3, Normal Mood/Affect Psychiatric: Alert, Normal Affect, Normal Mood Sepsis Event Note - Focused Exam Vital Signs: Vital Signs Temp Pulse Resp BP Pulse Ox 10/06/21 14:15 97.4 F 69 20 120/45 L 96 - Problem List (1) Decubitus ulcer of buttock, stage 2 SNOMED Code(s): 79139036682094339, [id number] ICD Code: L89.302 - PRESSURE ULCER OF UNSPECIFIED BUTTOCK, STAGE 2 Status: Acute Current Visit: Yes Problem List Initiated/Reviewed/Updated: No Orders Last 24hrs: Active Orders 24 hr Category Date Time Status Patient Status [ADT] Routine ADT 10/06/21 13:55 Active Oxygen Therapy [RC] .PRN Care 10/06/21 13:55 Active Up With Assistance [RC] .PRN Care 10/06/21 13:55 Active Wound Care [RC] Care 10/06/21 13:55 Active PT Evaluation and Treatment [CONS] Routine Cons 10/06/21 13:55 Active Regular Diet [DIET] Diet 10/06/21 Dinner Active Ampicillin Med 10/06/21 16:00 Active 2 gm IVPUSH Q4H Efavirenz [Efavirenz] Med 10/07/21 08:00 Active 0 mg PO DAILY Emtricitabine/Tenofovir Med 10/07/21 08:00 Active 0 tab PO DAILY Non-Formulary Medication [NF Drug] Med 10/09/21 08:00 Active 0 each PO MoWeFr@0800 Sodium Chloride 0.9% [Saline Flush] Med 10/06/21 13:55 Active 10 ml FLUSH ASDIRECTED PRN Patient May [OM.PC] Click To Edit Oth 10/06/21 13:55 Ordered Saline Lock Insert [OM.PC] Routine Oth 10/06/21 13:55 Ordered Resuscitation Status Routine Resus Stat 10/06/21 13:55 Ordered Medication Orders Ampicillin Sodium (Ampicillin 1 Gm Vial) 2 gm IVPUSH Q4H MINDI Last Admin: 10/06/21 16:52 Dose: 2 gm Documented by: SOFIE Vitamin D3 1.25mg (Cap Ptom) 0 each PO MoWeFr@0800 [facility] Efavirenz [Efavirenz ] 600 Mg Tablet Ptom 0 mg PO DAILY [facility] Emtricitabine/Tenofovir (Descovy) 200-25mg Tablet Ptom 0 tab PO DAILY [facility] Sodium Chloride (Sodium Chloride 0.9% 10 Ml Syringe) 10 ml FLUSH ASDIRECTED PRN PRN Reason: Keep Vein Open Assessment/Plan Comment:: D/t patient unable to travel for outpatient IV antibiotics every 4 hours we will admit direct admit to swing bed care. Will initiate Ampicillin 2grams q 4hr. Appointment scheduled for wound care at [facility] on Saturday at 9:00, which patient will go to for further evaluation. Wound dressing changes ordered daily with iodoform gauze.
[2021-10-06] MEDS ORDERED: Morphine 15 MG Tab.ER PO PRN (18:47)
[2021-10-06] MEDS ORDERED: tiZANidine 4 MG Tab PO PRN (18:47)
[2021-10-06] MEDS ORDERED: Nitroglycerin 0.4 MG Tab.SL SL PRN (18:47)
[2021-10-06] MEDS ORDERED: Triamcinolone Acetonide 0.1% Crm 15 GM Tube TOP PRN (18:47)
[2021-10-06] MEDS ORDERED: Non-Formulary Medication 1 Each (Naloxone Hcl [Narcan] 4 MG Spray) NS PRN (18:47)
[2021-10-06] MEDS ORDERED: Nystatin Crm 30 GM Tube TOP PRN (18:47)
[2021-10-06] MEDS ORDERED: Morphine 15 MG Tab PO PRN (18:47)
[2021-10-06] MEDS ORDERED: UBROGEPANT 100 MG PO PRN (18:47)
[2021-10-06] MEDS ORDERED: ERENUMAB AOOE 140 MG/ML SQ SCH (19:00)
[2021-10-06] MEDS ORDERED: [UNRECOGNIZED DRUG - OTHER] SQ SCH (19:00)
[2021-10-06] MEDS ORDERED: AUTO INJCT SQ SCH (19:00)
[2021-10-06] MEDS ORDERED: Albuterol 8 GM Inhaler INH PRN (19:01)
[2021-10-06] MEDS ORDERED: Loratadine 10 MG Tab PO PRN (19:08)
[2021-10-06] MEDS: busPIRone 5 MG Tab PO SCH (20:13)
[2021-10-06] MEDS: Pregabalin 100 MG Cap PO SCH (20:13)
[2021-10-06] MEDS: LORazepam 0.5 MG Tab PO SCH (20:13)
[2021-10-06] MEDS: Montelukast 10 MG Tab PO SCH (20:14)
[2021-10-07] MEDS: Polyvinyl Alcohol 1.4% Ophth Soln 15 ML Bottle EYEBOTH SCH ×2 (00:11→11:03)
[2021-10-07] MEDS: Ampicillin 1 GM Vial IVPUSH SCH ×7 (00:11→23:54)
[2021-10-07] MEDS: Cyclobenzaprine 10 MG Tab PO PRN ×2 (02:29→22:16)
[2021-10-07] MEDS: Oxybutynin 5 MG Tab.ER PO SCH (07:50)
[2021-10-07] MEDS: Pregabalin 100 MG Cap PO SCH ×3 (07:51→20:04)
[2021-10-07] MEDS: busPIRone 5 MG Tab PO SCH ×2 (07:52→13:27)
[2021-10-07] MEDS: Bumetanide 1 MG Tab PO SCH (07:52)
[2021-10-07] MEDS: Levothyroxine 125 MCG Tab PO SCH (07:53)
[2021-10-07] MEDS: LORazepam 0.5 MG Tab PO SCH ×2 (07:53→20:04)
[2021-10-07] MEDS: Cyanocobalamin (Vitamin B12) 1,000 MCG Tab PO SCH (07:54)
[2021-10-07] MEDS: Pantoprazole 40 MG Tab.CR PO SCH (07:54)
[2021-10-07] MEDS: Spironolactone 25 MG Tab PO SCH (07:55)
[2021-10-07] MEDS: Calcium Carbonate/Vitamin D3 1250 MG-5 MCG Tab PO SCH (07:55)
[2021-10-07] MEDS: DULoxetine 30 MG Cap PO SCH (07:55)
[2021-10-07] MEDS: Calcitriol 0.25 MCG Cap PO SCH (07:56)
[2021-10-07] MEDS ORDERED: Non-Formulary Medication 1 Each (Duloxetine [Cymbalta] 60 MG Cap) PO SCH (08:00)
[2021-10-07] MEDS ORDERED: Oxybutynin 5 MG Tab.ER PO SCH (08:00)
[2021-10-07] MEDS: TENOFOVIR PO SCH (08:16)
[2021-10-07] MEDS: EFAVIRENZ 600 MG PO SCH (08:16)
[2021-10-07] MEDS: EMTRICITABINE PO SCH (08:16)
[2021-10-07] MEDS ORDERED: Polyvinyl Alcohol 1.4% Ophth Soln 15 ML Bottle EYEBOTH PRN (11:01)
[2021-10-07] MEDS: RIVAROXABAN PO SCH (13:57)
[2021-10-07] MEDS: Montelukast 10 MG Tab PO SCH (20:04)
[2021-10-08] MEDS: Ampicillin 1 GM Vial IVPUSH SCH ×5 (04:15→20:15)
[2021-10-08] MEDS: LORazepam 0.5 MG Tab PO SCH ×2 (07:08→20:16)
[2021-10-08] MEDS: Pregabalin 100 MG Cap PO SCH ×3 (07:08→20:16)
[2021-10-08] MEDS: Calcitriol 0.25 MCG Cap PO SCH (07:08)
[2021-10-08] MEDS: Calcium Carbonate/Vitamin D3 1250 MG-5 MCG Tab PO SCH (07:09)
[2021-10-08] MEDS: Oxybutynin 5 MG Tab.ER PO SCH (07:09)
[2021-10-08] MEDS: Pantoprazole 40 MG Tab.CR PO SCH (07:09)
[2021-10-08] MEDS: Spironolactone 25 MG Tab PO SCH (07:09)
[2021-10-08] MEDS: Levothyroxine 125 MCG Tab PO SCH (07:09)
[2021-10-08] MEDS: Cyanocobalamin (Vitamin B12) 1,000 MCG Tab PO SCH (07:09)
[2021-10-08] MEDS: Bumetanide 1 MG Tab PO SCH (07:09)
[2021-10-08] MEDS: DULoxetine 30 MG Cap PO SCH (07:09)
[2021-10-08] MEDS: EFAVIRENZ 600 MG PO SCH (07:10)
[2021-10-08] MEDS: EMTRICITABINE PO SCH (07:11)
[2021-10-08] MEDS: TENOFOVIR PO SCH (07:11)
[2021-10-08] MEDS: RIVAROXABAN PO SCH (07:12)
[2021-10-08] MEDS: Montelukast 10 MG Tab PO SCH (20:16)
[2021-10-09] MEDS: Ampicillin 1 GM Vial IVPUSH SCH ×2 (00:35→04:35)
[2021-10-09] MEDS: Cyclobenzaprine 10 MG Tab PO PRN (01:50)
[2021-10-09] MEDS: Levothyroxine 125 MCG Tab PO SCH (06:35)
[2021-10-09] MEDS: Pregabalin 100 MG Cap PO SCH (06:36)
[2021-10-09] MEDS ORDERED: VITAMIN D3 PO SCH ×2 (08:00)
== END 2021-10-09 07:55 | disposition home or self-care (01) | DRG 593 ==
LOC: CC.MS 13:55
PROVIDERS: ADMIT Physician Assistant Medical; ATTEND Family Medicine
DX: L89.302 Pressure ulcer of unspecified buttock, stage 2 (principal); I13.0 Hypertensive heart and chronic kidney disease with heart failure and stage 1 through stage 4 chronic kidney disease, or unspecified chronic kidney disease; B20 Human immunodeficiency virus [HIV] disease; Z68.44 Body mass index [BMI] 60.0-69.9, adult; I50.9 Heart failure, unspecified; K21.9 Gastro-esophageal reflux disease without esophagitis; N18.30 Chronic kidney disease, stage 3 unspecified; F41.0 Panic disorder [episodic paroxysmal anxiety]; F31.9 Bipolar disorder, unspecified; E55.9 Vitamin D deficiency, unspecified; Z96.652 Presence of left artificial knee joint; E66.01 Morbid (severe) obesity due to excess calories; Z79.01 Long term (current) use of anticoagulants; Z91.040 Latex allergy status; Z91.030 Bee allergy status; Z88.6 Allergy status to analgesic agent; Z79.890 Hormone replacement therapy; Z79.899 Other long term (current) drug therapy; Z90.49 Acquired absence of other specified parts of digestive tract; Z98.84 Bariatric surgery status; Z98.51 Tubal ligation status; Z86.711 Personal history of pulmonary embolism
CPT/HCPCS: A9270-GY; J0290

== ENCOUNTER 2021-12-11 14:26 | Emergency (ER) | payer MEDICARE, MEDICAID ==
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
[2021-12-11] MEDS: Ondansetron 4 MG Tab.DIS PO STA (15:13)
== END 2021-12-11 16:43 | disposition home or self-care (01) ==
LOC: CC.ED 14:26
DX: B34.9 Viral infection, unspecified (principal); I13.0 Hypertensive heart and chronic kidney disease with heart failure and stage 1 through stage 4 chronic kidney disease, or unspecified chronic kidney disease; N18.30 Chronic kidney disease, stage 3 unspecified; I50.9 Heart failure, unspecified; Z91.040 Latex allergy status; Z91.030 Bee allergy status; Z88.5 Allergy status to narcotic agent; Z91.018 Allergy to other foods; Z79.01 Long term (current) use of anticoagulants
CPT/HCPCS: 36415; 71045; 80053; 85025; 86140; 87804; 99284-25; A9270-GY; U0002

== ENCOUNTER 2021-12-19 11:25 | Emergency (ER) | payer MEDICARE, MEDICAID ==
[2021-12-19] MEDS ORDERED: HYDROmorphone 1 MG/ML Syringe IVPUSH ONE (12:56)
[2021-12-19] MEDS ORDERED: Sodium Chloride 0.9% 250 ML IV SCH (13:00)
[2021-12-19 13:11] LABS: CHLORIDE,CL 106 mEq/L (98-106); SODIUM,NA 141 mEq/L (136-145)
[2021-12-19] MEDS ORDERED: HYDROmorphone 1 MG/ML Syringe SUBCUT ONE (13:43)
[2021-12-19] MEDS ORDERED: Loperamide 2 MG Cap PO ONE (16:54)
[2021-12-19] MEDS ORDERED: HYDROmorphone 2 MG Tab PO ONE (17:07)
== END 2021-12-19 17:20 | disposition home or self-care (01) ==
LOC: CC.ED 11:25
DX: R19.7 Diarrhea, unspecified (principal); I13.0 Hypertensive heart and chronic kidney disease with heart failure and stage 1 through stage 4 chronic kidney disease, or unspecified chronic kidney disease; N18.30 Chronic kidney disease, stage 3 unspecified; I50.9 Heart failure, unspecified; Z91.040 Latex allergy status; Z91.018 Allergy to other foods; Z91.030 Bee allergy status; Z79.01 Long term (current) use of anticoagulants; Z79.899 Other long term (current) drug therapy
CPT/HCPCS: 36415; 70450; 73560-LT; 80053; 85025; 87493; 96372; 99284-25; A9270-GY; J1170

== ENCOUNTER 2022-02-21 15:50 | Emergency (ER) | payer MEDICARE, MEDICAID ==
[2022-02-21] MEDS ORDERED: Ondansetron 4 MG/2 ML SDV IVPUSH PRN (16:22)
[2022-02-21] MEDS ORDERED: Sodium Chloride 0.9% 1,000 ML IV ONE (16:24)
[2022-02-21] MEDS ORDERED: Prochlorperazine 10 MG Tab PO ONE ×2 (17:41→18:08)
[2022-02-21] MEDS ORDERED: diphenhydrAMINE 25 MG Cap PO ONE (17:47)
== END 2022-02-21 18:25 | disposition home or self-care (01) ==
LOC: CC.ED 15:50
DX: K52.9 Noninfective gastroenteritis and colitis, unspecified (principal); I13.0 Hypertensive heart and chronic kidney disease with heart failure and stage 1 through stage 4 chronic kidney disease, or unspecified chronic kidney disease; N18.30 Chronic kidney disease, stage 3 unspecified; I50.9 Heart failure, unspecified; B20 Human immunodeficiency virus [HIV] disease; Z91.040 Latex allergy status; Z88.5 Allergy status to narcotic agent; Z91.030 Bee allergy status; Z91.018 Allergy to other foods; Z91.048 Other nonmedicinal substance allergy status; Z79.01 Long term (current) use of anticoagulants; Z79.899 Other long term (current) drug therapy
CPT/HCPCS: 36415; 80053; 83690; 83735; 85025; 96374; 99284; 99284-25; A9270-GY; J2405; J7030; Q0164

== ENCOUNTER 2022-06-19 16:44 | Emergency (ER) | payer MEDICARE, MEDICAID ==
[2022-06-19] MEDS ORDERED: hydrOXYzine HCl 25 MG Tab PO ONE (18:37)
[2022-06-19] MEDS ORDERED: Take Home: Doxycycline 100 MG Tab, 4 Tab Pack PO ONE (18:47)
== END 2022-06-19 19:00 | disposition home or self-care (01) ==
LOC: CC.ED 16:44
DX: S40.861A Insect bite (nonvenomous) of right upper arm, initial encounter (principal); I11.0 Hypertensive heart disease with heart failure; I50.9 Heart failure, unspecified; K21.9 Gastro-esophageal reflux disease without esophagitis; M19.90 Unspecified osteoarthritis, unspecified site; E05.90 Thyrotoxicosis, unspecified without thyrotoxic crisis or storm; Z91.040 Latex allergy status; Z91.030 Bee allergy status; Z91.048 Other nonmedicinal substance allergy status; Z88.5 Allergy status to narcotic agent; Z79.899 Other long term (current) drug therapy; W57.XXXA Bitten or stung by nonvenomous insect and other nonvenomous arthropods, initial encounter
CPT/HCPCS: 36415; 80053; 85025; 99283; 99284; A9270-GY